=== PATIENT | female | born 1975 ===

== ENCOUNTER 2021-01-22 10:02 | Outpatient (REF) | payer MEDICAID, SELFPAY ==
[2021-01-22 11:30] LABS: MANUAL DIFF FLAG NO
[2021-01-22 11:37] LABS: Basophils Percent Auto 0.4 % (0-2); Eosinophils Absolute Auto 0.1 X10*3/uL (0.0-0.4); Eosinophils Percent Auto 0.7 % (0-4); Hematocrit 39.8 % (37-47); Hemoglobin 13.2 g/dl (12.0-16.0); Imm Gran Abs Auto 0.03 X10*3/uL (0.00-0.03); Imm Gran Pct Auto 0.4 % (0.0-0.4); Lymphocytes Absolute Auto 2.4 X10*3/uL (1.2-4.9); Mean Corpuscular HGB Conc 33.2 g/dl (31.0-35.0); Mean Corpuscular Hemoglobin 30.4 pg (27.0-33.0); Mean Corpuscular Volume 91.7 fL (80-98); Mean Platelet Volume 10.6 fL (9.4-12.3); Monocytes Absolute Auto 0.5 X10*3/uL (0.1-1.2); Monocytes Percent Auto 5.8 % (2-11); Neutrophils Absolute Auto 5.1 X10*3/uL (2.0-8.3); Neutrophils Percent Auto 62.7 % (45-73); Platelet Count 219 X10*3/uL (160-400); Red Blood Count 4.34 X10*6/uL (4.20-5.50); Red Cell Distribution Width 12.9 % (11.0-16.0); White Blood Count 8.1 X10*3/uL (4.8-10.8)
[2021-01-22 11:54] LABS: Estimated Average Glucose 88 mg/dL; Hemoglobin A1c % 4.7 %
[2021-01-22 12:15] LABS: Alanine Aminotransferase 9 U/L (0-31); Albumin Level 4.3 g/dL (3.5-5.0); Alkaline Phosphatase 61 U/L (39-117); Anion Gap 13 (12-20); Aspartate Amino Transferase 12 U/L (5-31); Bilirubin Total 0.7 mg/dL (0.0-1.0); Blood Urea Nitrogen 15 mg/dL (9-16); C Reactive Protein 0.11 mg/dL (< or = 0.50); Calcium 9.9 mg/dL (8.4-10.2); Carbon Dioxide 24 mmol/L (22-29); Chloride 104 mmol/L (96-108); Cholesterol 187 mg/dL; Estimated Glomerular Filt Rate > 60; Glucose Random 84 mg/dL (60-115); HDL Cholesterol 51 mg/dL; Iron 159 mcg/dL (30-160); LDL Cholesterol Calculated 117 mg/dl; Percent Iron Saturation 48 % (15-50); Potassium 4.4 mmol/L (3.3-5.1); Sodium 137 mmol/L (135-145); Total Iron Binding Capacity 334 mcg/dL (228-428); Total Protein 7.7 g/dL (6.5-8.0); Triglycerides 95 mg/dL; Unsaturated Iron Binding 175 ug/dL
[2021-01-22 12:40] LABS: Ferritin 96 ng/mL (10-250); TSH reflex Free T4 1.79 uIU/mL (0.32-4.0); Vitamin D 25-OH Total 18.6 ng/mL (>30)
[2021-01-22 15:00] LABS: Folate 12.2 ng/mL (> or = 4.0); Vitamin B12 947 pg/mL (200-900)
[2021-01-23 10:03] LABS: Insulin Level Total 5.4 uIU/mL
[2021-01-23 19:45] LABS: Calcium (PTHI) 9.8 mg/dL (8.6-10.2); PTHI 48 pg/mL (14-64)
[2021-01-26 01:06] LABS: Zinc 67 mcg/dL (60-130)
[2021-01-26 13:27] LABS: Vitamin B1 18 nmol/L (8-30)
[2021-01-28 19:26] LABS: Vitamin A 42 mcg/dL (38-98)
== END 2021-01-22 10:03 | disposition home or self-care (01) ==
LOC: HO.LAB 10:02
PROVIDERS: PCP Internal Medicine Geriatric Medicine; Visit Provider Physician Assistant
DX: R42 Dizziness and giddiness (principal); E66.9 Obesity, unspecified; Z98.84 Bariatric surgery status; Z68.31 Body mass index [BMI] 31.0-31.9, adult
CPT/HCPCS: 36415; 80053; 80061; 82306; 82607; 82728; 82746; 83036; 83525; 83540; 83970; 84425; 84443; 84590; 84630; 85025; 86140; 99212

== ENCOUNTER → 2021-03-07 10:04 | Outpatient (BNVA) | payer MEDICAID, SELFPAY | PROVIDERS: PCP Internal Medicine Geriatric Medicine; Referring Provider Internal Medicine Geriatric Medicine; Visit Provider Dietitian, Registered | DX: E66.9 Obesity, unspecified (principal); Z98.84 Bariatric surgery status; Z68.31 Body mass index [BMI] 31.0-31.9, adult | CPT/HCPCS: 97803 ==

== ENCOUNTER → 2021-06-04 08:00 | Outpatient (BNVA) | payer MEDICAID, SELFPAY | PROVIDERS: PCP Internal Medicine Geriatric Medicine; Visit Provider Physician Assistant | DX: Z98.84 Bariatric surgery status (principal); E66.9 Obesity, unspecified; R42 Dizziness and giddiness ==

== ENCOUNTER → 2021-07-25 15:02 | Outpatient (BNVA) | payer MEDICAID, SELFPAY | PROVIDERS: Referring Provider Internal Medicine Geriatric Medicine; Visit Provider Physician Assistant Surgical | DX: K29.70 Gastritis, unspecified, without bleeding (principal) | CPT/HCPCS: 99212 ==

== ENCOUNTER → 2021-08-08 10:35 | Outpatient (BNVA) | payer MEDICAID, SELFPAY | PROVIDERS: PCP Internal Medicine Geriatric Medicine; Referring Provider Internal Medicine Geriatric Medicine; Visit Provider Physician Assistant | DX: Z11.0 Encounter for screening for intestinal infectious diseases (principal) | CPT/HCPCS: 99211 ==

== ENCOUNTER 2021-08-11 16:09 | Outpatient (REF) | payer MEDICAID, SELFPAY ==
[2021-08-12 16:09] LABS: H Pylori Breath Test Negative (Negative)
== END 2021-08-11 16:10 | disposition home or self-care (01) ==
LOC: HO.LNP 16:09
PROVIDERS: Visit Provider Physician Assistant
DX: E66.9 Obesity, unspecified (principal)
CPT/HCPCS: 83013

== ENCOUNTER → 2021-10-02 10:16 | Outpatient (BNVA) | payer MEDICAID, SELFPAY | PROVIDERS: PCP Internal Medicine Geriatric Medicine; Referring Provider Internal Medicine Geriatric Medicine; Visit Provider Physician Assistant | DX: R10.13 Epigastric pain (principal); Z98.84 Bariatric surgery status | CPT/HCPCS: 99212 ==

== ENCOUNTER → 2022-02-04 10:04 | Outpatient (BNVA) | payer MEDICAID, SELFPAY | PROVIDERS: PCP Internal Medicine Geriatric Medicine; Visit Provider Physician Assistant Surgical | DX: R10.13 Epigastric pain (principal); E66.9 Obesity, unspecified; Z68.33 Body mass index [BMI] 33.0-33.9, adult; Z71.3 Dietary counseling and surveillance; Z98.84 Bariatric surgery status | CPT/HCPCS: 99212 ==

== ENCOUNTER 2022-03-26 08:57 | Outpatient (REF) | payer MEDICAID, SELFPAY ==
[2022-03-26 09:17] LABS: MANUAL DIFF FLAG NO
[2022-03-26 09:49] LABS: Basophils Absolute Auto 0.1 X10*3/uL (0.0-0.2); Basophils Percent Auto 0.8 % (0-2); Eosinophils Absolute Auto 0.1 X10*3/uL (0.0-0.4); Hematocrit 40.4 % (37.0-47.0); Hemoglobin 13.6 g/dl (12.0-16.0); Imm Gran Abs Auto 0.03 X10*3/uL (0.00-0.03); Imm Gran Pct Auto 0.4 % (0.0-0.4); Lymphocytes Absolute Auto 2.4 X10*3/uL (1.2-4.9); Lymphocytes Percent Auto 30.5 % (20-40); Mean Corpuscular HGB Conc 33.7 g/dl (31.0-35.0); Mean Corpuscular Hemoglobin 30.1 pg (27.0-33.0); Mean Corpuscular Volume 89.4 fL (80.0-98.0); Mean Platelet Volume 10.6 fL (9.4-12.3); Monocytes Absolute Auto 0.4 X10*3/uL (0.1-1.2); Monocytes Percent Auto 5.4 % (2-11); Neutrophils Absolute Auto 4.9 x10*3/uL (2.0-8.3); Neutrophils Percent Auto 61.9 % (45-73); Platelet Count 250 X10*3/uL (160-400); Red Blood Count 4.52 X10*6/uL (4.20-5.50); Red Cell Distribution Width 13.4 % (11.0-16.0); White Blood Count 7.9 X10*3/uL (4.8-10.8)
[2022-03-26 10:06] LABS: Estimated Average Glucose 91 mg/dL; Hemoglobin A1c % 4.8 %
[2022-03-26 10:14] LABS: Alanine Aminotransferase 15 U/L (0-31); Albumin Level 4.4 g/dL (3.5-5.0); Alkaline Phosphatase 64 U/L (39-117); Anion Gap 16 (12-20); Aspartate Amino Transferase 12 U/L (5-31); Bilirubin Total 0.7 mg/dL (0.0-1.0); Blood Urea Nitrogen 14 mg/dL (9-16); C Reactive Protein 0.15 mg/dL (< or = 0.50); Calcium 9.5 mg/dL (8.4-10.2); Carbon Dioxide 23 mmol/L (22-29); Chloride 105 mmol/L (96-108); Cholesterol 225 mg/dL; Estimated Glomerular Filt Rate > 60; Glucose Random 91 mg/dL (60-115); HDL Cholesterol 53 mg/dL; Iron 119 mcg/dL (30-160); LDL Cholesterol Calculated 155 mg/dl; Percent Iron Saturation 33 % (15-50); Potassium 4.7 mmol/L (3.3-5.1); Sodium 139 mmol/L (135-145); Total Iron Binding Capacity 362 mcg/dL (228-428); Total Protein 7.8 g/dL (6.5-8.0); Triglycerides 86 mg/dL; Unsaturated Iron Binding 243 ug/dL
[2022-03-26 10:35] LABS: Vitamin B12 853 pg/mL (200-900)
[2022-03-26 10:44] LABS: Ferritin 53 ng/mL (10-250); TSH reflex Free T4 1.24 uIU/mL (0.32-4.0)
[2022-03-26 11:17] LABS: Insulin 14 uU/mL (2-29)
[2022-03-27 13:31] LABS: Calcium (PTHI) 9.6 mg/dL (8.6-10.2); PTHI 75 pg/mL (16-77)
[2022-03-30 02:47] LABS: Zinc 79 mcg/dL (60-130)
[2022-03-30 06:36] LABS: Vitamin B1 15 nmol/L (8-30)
[2022-03-31 17:22] LABS: Vitamin A 47 mcg/dL (38-98)
== END 2022-03-26 08:58 | disposition home or self-care (01) ==
LOC: HO.LAB 08:57
PROVIDERS: PCP Internal Medicine Geriatric Medicine; Visit Provider Physician Assistant Surgical
DX: Z98.84 Bariatric surgery status (principal)
CPT/HCPCS: 36415; 80053; 80061; 82306; 82607; 82728; 82746; 83036; 83525; 83540; 83970; 84425; 84443; 84590; 84630; 85025; 86140

== ENCOUNTER 2022-07-16 09:39 | Outpatient (REF) | payer MEDICAID, SELFPAY ==
[2022-07-17 12:29] LABS: BV Int Neg Control Negative (Negative); BV Int Pos Control Positive (Positive)
== END 2022-07-16 09:40 | disposition home or self-care (01) ==
LOC: HO.LAB 09:39
PROVIDERS: PCP Internal Medicine Geriatric Medicine; Visit Provider Urology
DX: N39.3 Stress incontinence (female) (male) (principal)
CPT/HCPCS: 51798; 87480; 87510; 87660; 99202

== ENCOUNTER 2022-09-28 10:08 | Outpatient (REF) | payer MEDICAID, SELFPAY ==
--- NOTE | ~2022-09-28 | US_ITS ---
EXAMINATION: US RETROPERITONEAL LIMITED (RENAL ONLY) CLINICAL INFORMATION: Frequency of micturition. COMPARISON: X-ray abdomen 03/04/2018. Ultrasound abdomen with elastography 12/09/2017. TECHNIQUE: Real-time imaging of the kidneys. FINDINGS: RIGHT KIDNEY: 10.6 x 4.7 x 5.1 cm (SAG x AP x TRV). The kidney is normal in size, contour, and echogenicity. Renal cortical thickness is normal. No calculi or focal parenchymal lesions. No hydronephrosis. LEFT KIDNEY: 10.5 x 5.7 x 5.1 cm (SAG x AP x TRV). The kidney is normal in size, contour, and echogenicity. Renal cortical thickness is normal. No calculi or focal parenchymal lesions. No hydronephrosis. US/US renal BI IMPRESSION: Unremarkable renal ultrasound.
== END 2022-09-28 10:09 | disposition home or self-care (01) ==
LOC: HO.US 10:08
PROVIDERS: PCP Internal Medicine Geriatric Medicine; Visit Provider Urology
DX: R35.0 Frequency of micturition (principal)
CPT/HCPCS: 76775

== ENCOUNTER 2023-01-14 09:01 | Outpatient (REF) | payer MEDICAID, SELFPAY ==
[2023-01-14 11:45] LABS: MANUAL DIFF FLAG NO
[2023-01-14 11:52] LABS: Basophils Absolute Auto 0.1 X10*3/uL (0.0-0.2); Basophils Percent Auto 0.5 % (0-2); Eosinophils Absolute Auto 0.1 X10*3/uL (0.0-0.4); Hematocrit 42.8 % (37.0-47.0); Hemoglobin 14.6 g/dl (12.0-16.0); Imm Gran Abs Auto 0.03 X10*3/uL (0.00-0.03); Imm Gran Pct Auto 0.3 % (0.0-0.4); Lymphocytes Absolute Auto 2.8 X10*3/uL (1.2-4.9); Lymphocytes Percent Auto 29.8 % (20-40); Mean Corpuscular HGB Conc 34.1 g/dl (31.0-35.0); Mean Corpuscular Hemoglobin 29.9 pg (27.0-33.0); Mean Corpuscular Volume 87.5 fL (80.0-98.0); Mean Platelet Volume 10.9 fL (9.4-12.3); Monocytes Absolute Auto 0.6 X10*3/uL (0.1-1.2); Monocytes Percent Auto 6.2 % (2-11); Neutrophils Absolute Auto 5.8 x10*3/uL (2.0-8.3); Neutrophils Percent Auto 62.2 % (45-73); Platelet Count 331 X10*3/uL (160-400); Red Blood Count 4.89 X10*6/uL (4.20-5.50); Red Cell Distribution Width 13.2 % (11.0-16.0); White Blood Count 9.3 X10*3/uL (4.8-10.8)
[2023-01-14 11:55] LABS: INTERNATIONAL NORM RATIO 0.9 (0.9-1.1); Prothrombin Time 10.5 SEC (10.0-13.1)
[2023-01-14 12:21] LABS: Anion Gap 14 (12-20); Blood Urea Nitrogen 18 mg/dL (9-16); Calcium 11.1 mg/dL (8.4-10.2); Carbon Dioxide 30 mmol/L (22-29); Chloride 98 mmol/L (96-108); Estimated Glomerular Filt Rate > 60; Glucose Random 69 mg/dL (60-115); Potassium 3.1 mmol/L (3.3-5.1); Sodium 139 mmol/L (135-145)
== END 2023-01-14 09:02 | disposition home or self-care (01) ==
LOC: HO.HHCL 09:01
PROVIDERS: Visit Provider Internal Medicine Geriatric Medicine
DX: T14.8XXA Other injury of unspecified body region, initial encounter (principal)
CPT/HCPCS: 36415; 80048; 85025; 85610

== ENCOUNTER 2023-02-08 09:10 | Outpatient (REF) | payer MEDICAID, SELFPAY ==
[2023-02-08 12:01] LABS: Anion Gap 14 (12-20); Blood Urea Nitrogen 13 mg/dL (9-16); Calcium 9.7 mg/dL (8.4-10.2); Carbon Dioxide 23 mmol/L (22-29); Chloride 105 mmol/L (96-108); Estimated Glomerular Filt Rate > 60; Glucose Random 87 mg/dL (60-115); Potassium 3.4 mmol/L (3.3-5.1); Sodium 139 mmol/L (135-145)
[2023-02-10 13:48] LABS: Calcium (PTHI) 9.5 mg/dL (8.6-10.2); PTHI 120 pg/mL (16-77)
[2023-02-12 13:25] LABS: Alphahydroxymidazolam,GCMS Ur NEGATIVE; Alphahydroxytriazolam, GCMS Ur NEGATIVE; Alprazolam, GCMS Urine NEGATIVE; Lorazepam GCMS Urine NEGATIVE; Nordiazepam, GCMS Urine NEGATIVE; Oxazepam, GCMS Urine NEGATIVE; Temazepam, GCMS Urine NEGATIVE
[2023-02-12 13:26] LABS: Flurazepam Metabolite,GCMS Ur NEGATIVE
== END 2023-02-08 09:11 | disposition home or self-care (01) ==
LOC: HO.HHCL 09:10
PROVIDERS: Visit Provider Internal Medicine Geriatric Medicine
DX: F41.8 Other specified anxiety disorders (principal); E83.52 Hypercalcemia; E87.6 Hypokalemia
CPT/HCPCS: 36415; 80048; 80346; 83970

== ENCOUNTER 2023-05-04 16:41 | Outpatient (REF) | payer MEDICAID, SELFPAY ==
[2023-05-10 12:22] LABS: Alphahydroxymidazolam,GCMS Ur NEGATIVE; Alphahydroxytriazolam, GCMS Ur NEGATIVE; Alprazolam, GCMS Urine NEGATIVE; Flurazepam Metabolite,GCMS Ur NEGATIVE; Lorazepam GCMS Urine NEGATIVE; Nordiazepam, GCMS Urine NEGATIVE; Oxazepam, GCMS Urine NEGATIVE; Temazepam, GCMS Urine NEGATIVE
== END 2023-05-04 16:42 | disposition home or self-care (01) ==
LOC: HO.HHCLNP 16:41
PROVIDERS: Visit Provider Internal Medicine Geriatric Medicine
DX: G89.29 Other chronic pain (principal); M54.50 Low back pain, unspecified
CPT/HCPCS: 80346

== ENCOUNTER 2023-07-08 13:33 | Outpatient (REF) | payer MEDICAID, SELFPAY ==
[2023-07-13 10:22] LABS: Nordiazepam, GCMS Urine NEGATIVE
[2023-07-13 10:23] LABS: Alphahydroxymidazolam,GCMS Ur NEGATIVE; Alphahydroxytriazolam, GCMS Ur NEGATIVE; Alprazolam, GCMS Urine NEGATIVE; Flurazepam Metabolite,GCMS Ur NEGATIVE; Lorazepam GCMS Urine NEGATIVE; Oxazepam, GCMS Urine NEGATIVE; Temazepam, GCMS Urine NEGATIVE
== END 2023-07-08 13:34 | disposition home or self-care (01) ==
LOC: HO.HHCLNP 13:33
PROVIDERS: Visit Provider Internal Medicine Geriatric Medicine
DX: F41.8 Other specified anxiety disorders (principal)
CPT/HCPCS: 80346

== ENCOUNTER 2023-09-01 17:59 | Outpatient (REF) | payer MEDICAID, SELFPAY ==
[2023-09-06 08:42] LABS: Alphahydroxymidazolam,GCMS Ur NEGATIVE; Alphahydroxytriazolam, GCMS Ur NEGATIVE; Alprazolam, GCMS Urine NEGATIVE; Flurazepam Metabolite,GCMS Ur NEGATIVE; Lorazepam GCMS Urine NEGATIVE; Nordiazepam, GCMS Urine NEGATIVE; Oxazepam, GCMS Urine NEGATIVE; Temazepam, GCMS Urine NEGATIVE
== END 2023-09-01 18:00 | disposition home or self-care (01) ==
LOC: HO.HHCLNP 17:59
PROVIDERS: Visit Provider Internal Medicine Geriatric Medicine
DX: M54.50 Low back pain, unspecified (principal); G89.29 Other chronic pain
CPT/HCPCS: 80346

== ENCOUNTER 2023-10-14 10:11 | Outpatient (AMB) | payer MEDICAID, SELFPAY ==
--- NOTE | 2023-10-14 10:27 | MHC.OFFVISWM ---
Intake VS Expanded 10/14/23 10:33 BP 144/82 H Blood Pressure Location Rt brachial Blood Pressure Position Sitting Pulse 96 Pulse Source Pulse Oximeter Temp 96.5 F L Temperature Source Tympanic Pulse Oximetry 100 Oxygen Delivery Method Room Air Height 5 ft 1 in Weight 179 lb 6.4 oz BMI 33.9 Body Fat % 42.8 Body Fat Mass 76.8 Fat Free Mass 102.6 Visceral Fat Rating 10.0 Body Water % 40.8 Body Water Mass 73.2 Muscle Mass/Score 97.2 Basal Metabolic Rate/Score 1,438 Intake Visit Reasons: (OV) PO LSG 03/03/2018 Allergies No Known Allergies [No Known Allergies*] Allergy (Verified 10/14/23 10:36) Medication List - Last Reconciled 10/14/23 by ROB Escalante albuterol sulfate 90 mcg/actuation (ProAir HFA) 2 puffs PO Q4-6H PRN amlodipine 2.5 mg PO DAILY cixsbzinmn-abxtdfmhyffdu-ictc 50-325-40 mg 1 - 2 tabs PO Q4H PRN cholecalciferol (vitamin D3) 125 mcg PO DAILY clonazepam 0.5 mg PO Q OTHER DAY PRN diphenhydramine HCl (Banophen) 25 mg PO BEDTIME PRN duloxetine 30 mg PO BID fluticasone propionate 110 mcg/actuation (Flovent HFA) 1 puff inhalation BID fluticasone propionate 44 mcg/actuation (Flovent HFA) 2 puffs inhalation BID meclizine 25 mg PO TID PRN ondansetron HCl 8 mg PO BID [opurity bariatric mVI 1 cap PO DAILY] pantoprazole 40 mg PO DAILY sertraline 50 mg PO DAILY tramadol 50 mg PO Q12H PRN trazodone 50 mg PO BEDTIME HPI HPI Comments History of Present Illness Details This?is a?47?yo female who is s/p LSG 03/03/2018. Weight +1lb since last OV in 02/2022.? No complaints of nausea, emesis, or constipation. Pt reports a constant burning pain in abdomen. Happens all the time , nothing makes it worse or better. No nausea, no vomiting. Feels constipated, nonbloody stools. Reports she is well hydrated, drinks water and Crystal Light, no soda or juices. No smoking, no EtOH. Tries to avoid acidic foods as those make it work. Drinks coffee- 2 cups, 8oz or so each, adds a little cream. Will have this on an empty stomach, doesn't have anything to eat or drink before this. Also has noticed easy bruising and some leg swelling at ankles, per pt was previously on a diuretic but was stopped recently? Lately has been drinking coffee at 7am, eats something at 1pm and then another meal around 6pm, eats soups often. Present meal plan includes: 7am- 30 gram shake 8am - coffee 12pm - 30 gram shake 4pm- meal Pt continues to have coffee first before any other food/drink. Says her portions or small and she is not often hungry. [facility] Surgical History (Updated 10/14/23 @ 10:37 by Janeen Clements [facility]) Hx of laparoscopic partial gastrectomy Family History Mother Hypertension Family history of thyroid problem Father No problems noted. Sister No problems noted. Sister No problems noted. Brother No problems noted. Son No problems noted. Son No problems noted. Social History (System 07/09/23 @ 10:47 by Priscila Dalton) Alcohol intake: never Patient Tobacco Use Status: Never used Tobacco Physical Exam Vital Signs: Last Vital Signs Temp 96.5 F L 10/14/23 10:33 Pulse 96 10/14/23 10:33 BP 144/82 H 10/14/23 10:33 Pulse Ox 100 10/14/23 10:33 Oxygen Delivery Method Room Air 10/14/23 10:33 BMI result Body Mass Index 33.9 Assessment & Plan Assessment & Plan (1) S/P laparoscopic sleeve gastrectomy: Comment: February 2018 Code(s): Z98.84 - Bariatric surgery status (2) Epigastric pain: Code(s): R10.13 - Epigastric pain (3) Obesity: Code(s): E66.9 - Obesity, unspecified Plan Again discussed the importance of not drinking coffee on empty stomach and getting adequate protein intake. I think her recent complaints of easy bruising and leg swelling may be related in part to poor nutrition. Pt needs to increase protein intake. Recommended adding 2 protein drinks per day (protein [place] or shakes), needs to drink protein drink first before coffee. Will refill PPI and add carafate, reviewed appropriate dosing. If no improvement despite new med and adherence to meal plan will order UGI at next visit. Labs ordered. RTC 8 weeks. Patient is obese and is not considered stable at this time. I spent a total of 30 minutes reviewing/updating records, examining the patient and counseling the patient on weight management as detailed above. Orders: Orders Hemoglobin A1c Today R42 - Dizziness and giddiness, Z98.84 - Bariatric surgery status Complete Blood Count Auto Diff Today R42 - Dizziness and giddiness, Z98.84 - Bariatric surgery status IRON PROFILE Today R42 - Dizziness and giddiness, Z98.84 - Bariatric surgery status Comprehensive Met. Panel Today R42 - Dizziness and giddiness, Z98.84 - Bariatric surgery status Vitamin B12 and Folate Today R42 - Dizziness and giddiness, Z98.84 - Bariatric surgery status Vitamin B1 Today R42 - Dizziness and giddiness, Z98.84 - Bariatric surgery status TSH reflex Free T4 Today R42 - Dizziness and giddiness, Z98.84 - Bariatric surgery status Insulin Today R42 - Dizziness and giddiness, Z98.84 - Bariatric surgery status Lipid Panel Today R42 - Dizziness and giddiness, Z98.84 - Bariatric surgery status Zinc Today R42 - Dizziness and giddiness, Z98.84 - Bariatric surgery status C Reactive Protein Today R42 - Dizziness and giddiness, Z98.84 - Bariatric surgery status Vitamin A Today R42 - Dizziness and giddiness, Z98.84 - Bariatric surgery status Ferritin Today R42 - Dizziness and giddiness, Z98.84 - Bariatric surgery status Vitamin D 25-OH Total Today R42 - Dizziness and giddiness, Z98.84 - Bariatric surgery status Medications: New sucralfate (Carafate) 10 mL PO BID 420 mL 3RF inulin 2 grams PO DAILY 90 tabs 3RF magnesium hydroxide (Fernandez Milk of Magnesia) 5 mL PO DAILY PRN 355 mL 2RF constipation Refilled pantoprazole 40 mg PO DAILY 90 tabs 3RF Coding Level of Care Code Est Pt Level 4 (82464) Diagnoses S/P laparoscopic sleeve gastrectomy Z98.84 Epigastric pain R10.13 Obesity E66.9
[2023-10-14 10:33] VITALS: BP 144/82; PULSE 96; TEMP 35.8; O2SAT 100; BMI 33.9
== END 2023-10-14 11:11 | disposition home or self-care (01) ==
PROVIDERS: PCP Internal Medicine Geriatric Medicine; Visit Provider Physician Assistant Surgical
DX: E66.9 Obesity, unspecified (principal); Z68.33 Body mass index [BMI] 33.0-33.9, adult; R10.13 Epigastric pain; Z98.84 Bariatric surgery status
CPT/HCPCS: 99214

== ENCOUNTER → 2023-10-14 10:11 | Outpatient (BNVA) | payer MEDICAID, SELFPAY | PROVIDERS: PCP Internal Medicine Geriatric Medicine; Visit Provider Physician Assistant Surgical | DX: E66.9 Obesity, unspecified (principal); R10.13 Epigastric pain; Z98.84 Bariatric surgery status; Z68.33 Body mass index [BMI] 33.0-33.9, adult | CPT/HCPCS: 99212 ==

== ENCOUNTER 2023-10-18 07:12 | Outpatient (REF) | payer MEDICAID, SELFPAY ==
[2023-10-18 07:30] LABS: MANUAL DIFF FLAG NO
[2023-10-18 08:32] LABS: Basophils Percent Auto 0.6 % (0-2); Eosinophils Absolute Auto 0.1 X10*3/uL (0.0-0.4); Eosinophils Percent Auto 0.8 % (0-4); Hematocrit 40.2 % (37.0-47.0); Hemoglobin 13.5 g/dl (12.0-16.0); Imm Gran Abs Auto 0.02 X10*3/uL (0.00-0.03); Imm Gran Pct Auto 0.3 % (0.0-0.4); Lymphocytes Absolute Auto 2.3 X10*3/uL (1.2-4.9); Lymphocytes Percent Auto 31.8 % (20-40); Mean Corpuscular HGB Conc 33.6 g/dl (31.0-35.0); Mean Corpuscular Hemoglobin 29.9 pg (27.0-33.0); Mean Corpuscular Volume 88.9 fL (80.0-98.0); Mean Platelet Volume 10.5 fL (9.4-12.3); Monocytes Absolute Auto 0.5 X10*3/uL (0.1-1.2); Monocytes Percent Auto 6.5 % (2-11); Neutrophils Absolute Auto 4.3 x10*3/uL (2.0-8.3); Platelet Count 243 X10*3/uL (160-400); Red Blood Count 4.52 X10*6/uL (4.20-5.50); Red Cell Distribution Width 13.5 % (11.0-16.0); White Blood Count 7.1 X10*3/uL (4.8-10.8)
[2023-10-18 08:44] LABS: Estimated Average Glucose 97 mg/dL
[2023-10-18 09:09] LABS: Alanine Aminotransferase 25 U/L (0-31); Albumin Level 4.4 g/dL (3.5-5.0); Alkaline Phosphatase 73 U/L (39-117); Anion Gap 11 (12-20); Aspartate Amino Transferase 17 U/L (5-31); Bilirubin Total 0.5 mg/dL (0.0-1.0); Blood Urea Nitrogen 16 mg/dL (9-16); C Reactive Protein 0.17 mg/dL (< or = 0.50); Calcium 10.1 mg/dL (8.4-10.2); Carbon Dioxide 22 mmol/L (22-29); Chloride 109 mmol/L (96-108); Cholesterol 227 mg/dL (<200); Estimated Glomerular Filt Rate > 60; Glucose Random 89 mg/dL (60-115); HDL Cholesterol 63 mg/dL (>40); Iron 88 mcg/dL (30-160); LDL Cholesterol Calculated 149 mg/dL (<100); Percent Iron Saturation 28 % (15-50); Potassium 3.9 mmol/L (3.3-5.1); Sodium 138 mmol/L (135-145); Total Iron Binding Capacity 311 mcg/dL (228-428); Triglycerides 76 mg/dL (<150); Unsaturated Iron Binding 223 ug/dL
[2023-10-18 09:30] LABS: Folate 6.6 ng/mL (> or = 4.0); Vitamin B12 769 pg/mL (200-900)
[2023-10-18 09:32] LABS: Ferritin 69 ng/mL (10-250); Insulin 9 uU/mL (2-29); Vitamin D 25-OH Total 29.6 ng/mL (>30)
[2023-10-20 22:12] LABS: Zinc 76 mcg/dL (60-130)
[2023-10-21 17:58] LABS: Vitamin A 43 mcg/dL (38-98)
[2023-10-22 17:33] LABS: Vitamin B1 15 nmol/L (8-30)
== END 2023-10-18 07:13 | disposition home or self-care (01) ==
LOC: HO.LAB 07:12
PROVIDERS: PCP Internal Medicine Geriatric Medicine; Visit Provider Physician Assistant Surgical
DX: R42 Dizziness and giddiness (principal); Z98.84 Bariatric surgery status
CPT/HCPCS: 36415; 80053; 80061; 82306; 82607; 82728; 82746; 83036; 83525; 83540; 84425; 84443; 84590; 84630; 85025; 86140

== ENCOUNTER 2023-11-01 17:30 | Outpatient (REF) | payer MEDICAID, SELFPAY ==
[2023-11-04 13:14] LABS: Alphahydroxymidazolam,GCMS Ur NEGATIVE; Alphahydroxytriazolam, GCMS Ur NEGATIVE; Alprazolam, GCMS Urine NEGATIVE; Flurazepam Metabolite,GCMS Ur NEGATIVE; Lorazepam GCMS Urine NEGATIVE; Nordiazepam, GCMS Urine NEGATIVE; Oxazepam, GCMS Urine NEGATIVE; Temazepam, GCMS Urine NEGATIVE
== END 2023-11-01 17:31 | disposition home or self-care (01) ==
LOC: HO.HHCLNP 17:30
PROVIDERS: Visit Provider Internal Medicine Geriatric Medicine
DX: M54.50 Low back pain, unspecified (principal); G89.29 Other chronic pain
CPT/HCPCS: 80346

== ENCOUNTER 2023-12-15 13:54 | Outpatient (AMB) | payer MEDICAID, SELFPAY ==
--- NOTE | 2023-12-15 13:57 | MHC.OFFVISWM ---
VS Expanded 12/15/23 14:12 BP 142/68 H Blood Pressure Location Rt brachial Blood Pressure Position Sitting Pulse 91 Pulse Source Pulse Oximeter Temp 96.8 F Temperature Source Tympanic Pulse Oximetry 99 Oxygen Delivery Method Room Air Height 5 ft 1 in Weight 177 lb 9.6 oz BMI 33.6 Body Fat % 42.7 Body Fat Mass 75.8 Fat Free Mass 101.6 Visceral Fat Rating 10.0 Body Water % 40.9 Body Water Mass 72.6 Muscle Mass/Score 96.6 Basal Metabolic Rate/Score 1,426 Intake Visit Reasons: (OV) PO LSG 03/03/2018 Allergies No Known Allergies [No Known Allergies*] Allergy (Verified 12/15/23 14:14) HPI Comments Details: This?is a?47?yo female who is s/p LSG 03/03/2018. Weight -2lb since last OV in 10/2023.? No complaints of nausea, emesis, or constipation. Pt reports a constant burning pain in abdomen. Happens all the time , nothing makes it worse or better. No nausea, no vomiting. Feels constipated, nonbloody stools. Reports she is well hydrated, drinks water and Crystal Light, no soda or juices. No smoking, no EtOH. Tries to avoid acidic foods as those make it work. On PPI and carafate. Drinks coffee- 2 cups, 8oz or so each, adds a little cream. Has been drinking coffee after having some of protein shake ( was not doing this previously) but reports symptoms are no better. Continues to have some leg swelling, saw PCP, had been taking a diuretic but this was stopped after bruising was noted per pt. Pt does not want to try compression stockings. Present meal plan includes: 7am- 30 gram shake 8am - coffee 12pm - 30 gram shake 4pm- meal reports she takes a MVI Pt continues to have coffee first before any other food/drink. Says her portions or small and she is not often hungry. [facility], [facility] Surgical History (Updated 10/14/23 @ 10:37 by Janeen Clements [facility]) Hx of laparoscopic partial gastrectomy Family History Mother Hypertension Family history of thyroid problem Father No problems noted. Sister No problems noted. Sister No problems noted. Brother No problems noted. Son No problems noted. Son No problems noted. Social History (System 07/09/23 @ 10:47 by Priscila Dalton) Alcohol intake: never Patient Tobacco Use Status: Never used Tobacco Physical Exam Vital Signs: Last Vital Signs Temp 96.8 F 12/15/23 14:12 Pulse 91 12/15/23 14:12 BP 142/68 H 12/15/23 14:12 Pulse Ox 99 12/15/23 14:12 Oxygen Delivery Method Room Air 12/15/23 14:12 BMI result Body Mass Index 33.6 Assessment & Plan Assessment & Plan (1) GERD (gastroesophageal reflux disease): Code(s): K21.9 - Gastro-esophageal reflux disease without esophagitis Category: Medical (2) S/P laparoscopic sleeve gastrectomy: Comment: February 2018 Code(s): Z98.84 - Bariatric surgery status Category: Medical (3) Obesity: Code(s): E66.9 - Obesity, unspecified Category: Medical Plan Pt reports making suggested changes to meal plan, avoiding coffee first, has lost 2lbs since last OV but still suffering from reflux despite PPI/carafate therapy. Will order UGI and depending on results consider endoscopy with Dr. Caprice Blancas continue same meal plan, adequate protein, avoid reflux triggers, focus on weight loss. Patient is obese and is not considered stable at this time. I spent a total of 30 minutes reviewing/updating records, examining the patient and counseling the patient on weight management as detailed above. Orders: Orders FL upper GI w air Today K21.9 - Gastro-esophageal reflux disease without esophagitis, Z98.84 - Bariatric surgery status Medications: Refilled sucralfate (Carafate) 10 mL PO BID 420 mL 3RF
[2023-12-15 14:12] VITALS: BP 142/68; PULSE 91; TEMP 36; O2SAT 99; BMI 33.6
== END 2023-12-15 14:59 | disposition home or self-care (01) ==
PROVIDERS: PCP Internal Medicine Geriatric Medicine; Visit Provider Physician Assistant Surgical
DX: K21.9 Gastro-esophageal reflux disease without esophagitis (principal); Z98.84 Bariatric surgery status; E66.9 Obesity, unspecified
CPT/HCPCS: 99214

== ENCOUNTER → 2023-12-15 13:54 | Outpatient (BNVA) | payer MEDICAID, SELFPAY | PROVIDERS: PCP Internal Medicine Geriatric Medicine; Visit Provider Physician Assistant Surgical | DX: E66.9 Obesity, unspecified (principal); K21.9 Gastro-esophageal reflux disease without esophagitis; Z98.84 Bariatric surgery status; Z68.33 Body mass index [BMI] 33.0-33.9, adult | CPT/HCPCS: 99212 ==

== ENCOUNTER 2023-12-29 16:44 | Outpatient (REF) | payer MEDICAID, SELFPAY ==
[2024-01-03 12:30] LABS: Alphahydroxymidazolam,GCMS Ur NEGATIVE; Alphahydroxytriazolam, GCMS Ur NEGATIVE; Alprazolam, GCMS Urine NEGATIVE; Flurazepam Metabolite,GCMS Ur NEGATIVE; Lorazepam GCMS Urine NEGATIVE; Nordiazepam, GCMS Urine NEGATIVE; Oxazepam, GCMS Urine NEGATIVE; Temazepam, GCMS Urine NEGATIVE
[2024-01-03 12:43] LABS: Aminoclonazepam, GCMS Urine 73 (H)
== END 2023-12-29 16:45 | disposition home or self-care (01) ==
LOC: HO.HHCLNP 16:44
PROVIDERS: Visit Provider Internal Medicine Geriatric Medicine
DX: F41.8 Other specified anxiety disorders (principal)
CPT/HCPCS: 80346

== ENCOUNTER 2024-02-18 09:40 | Outpatient (REF) | payer MEDICAID, SELFPAY ==
--- NOTE | ~2024-02-18 | FL_ITS ---
EXAMINATION: XR FLUOROSCOPY UPPER GI WITH AIR CLINICAL INFORMATION: Epigastric pain. History of sleeve gastrectomy COMPARISON: Barium swallow 2018 TECHNIQUE: Fluoroscopic air contrast upper GI examination was performed utilizing standard techniques with thin and thick barium and effervescent granules. Numerous spot images were obtained. FINDINGS: Dual and single contrast images of the esophagus demonstrate normal caliber, contour, and mucosal pattern. No evidence of stricture, mass, or ulcerations identified. Esophageal peristalsis was normal. There is mild cricopharyngeal achalasia present. Surgical clips are present in the upper quadrant. A small type I hiatal hernia is present. Gastroesophageal reflux is seen up to level the aortic arch. Dual contrast and single contrast images of the stomach demonstrated a contour consistent with prior history of sleeve gastrectomy. The areae gastricae in the fundus appear thickened, which suggests gastritis. No masses or ulcerations are seen. Contrast freely passed into the gastric antrum and duodenal bulb without delay. Single and air-contrast images of the duodenal bulb demonstrate no abnormality. The duodenal sweep has a normal appearance, course, and mucosal fold appearance. The imaged proximal jejunum has a normal fold pattern and caliber. FLUOROSCOPY TIME: 3 minutes 39 seconds Number of Spot Images: 6 Number of Cine: 15 DOSE AREA PRODUCT: 2348 uGy-m2 (microgray-meter squared) FL/FL upper GI w air IMPRESSION: 1. Mild cricopharyngeal achalasia. 2. Small type I hiatal hernia moderate gastroesophageal reflux. 3. Postsurgical changes consistent with prior history of sleeve gastrectomy. 4. Thickened appearance of the areae gastricae in the fundus, which suggests gastritis. This procedure was performed by Luis Enrique Duff PA-C, and supervised by Dr. Dobbs
== END 2024-02-18 09:41 | disposition home or self-care (01) ==
LOC: HO.XRAY 09:40
PROVIDERS: Visit Provider Physician Assistant Surgical
DX: Z98.84 Bariatric surgery status (principal); K21.9 Gastro-esophageal reflux disease without esophagitis
CPT/HCPCS: 74246

== ENCOUNTER → 2024-02-18 09:46 | Outpatient (BNV) | payer MEDICAID, SELFPAY | PROVIDERS: Visit Provider Physician Assistant Surgical | DX: R10.13 Epigastric pain (principal); Z98.84 Bariatric surgery status | CPT/HCPCS: 74246 ==

== ENCOUNTER 2024-02-23 17:04 | Outpatient (REF) | payer MEDICAID, SELFPAY ==
[2024-02-25 14:41] LABS: Alphahydroxymidazolam,GCMS Ur NEGATIVE; Alphahydroxytriazolam, GCMS Ur NEGATIVE; Alprazolam, GCMS Urine NEGATIVE; Flurazepam Metabolite,GCMS Ur NEGATIVE; Lorazepam GCMS Urine NEGATIVE; Nordiazepam, GCMS Urine NEGATIVE; Oxazepam, GCMS Urine NEGATIVE; Temazepam, GCMS Urine NEGATIVE
[2024-02-25 14:42] LABS: Aminoclonazepam, GCMS Urine 149 (H)
== END 2024-02-23 17:05 | disposition home or self-care (01) ==
LOC: HO.HHCLNP 17:04
PROVIDERS: Visit Provider Internal Medicine Geriatric Medicine
DX: M54.50 Low back pain, unspecified (principal); G89.29 Other chronic pain
CPT/HCPCS: 80346

== ENCOUNTER 2024-03-07 11:28 | Outpatient (AMB) | payer MEDICAID, SELFPAY ==
--- NOTE | 2024-03-07 11:32 | MHC.OFFVISWM ---
VS Expanded 03/07/24 11:38 BP 140/73 H Blood Pressure Location Rt brachial Blood Pressure Position Sitting Pulse 74 Pulse Source Pulse Oximeter Temp 97.0 F Temperature Source Temporal Artery Scan Pulse Oximetry 98 Oxygen Delivery Method Room Air Height 5 ft 1 in Weight 180 lb 12.8 oz BMI 34.2 Body Fat % 43.0 Body Fat Mass 77.8 Fat Free Mass 103.0 Visceral Fat Rating 11.0 Body Water % 40.6 Body Water Mass 73.4 Muscle Mass/Score 97.6 Basal Metabolic Rate/Score 1,444 Intake Visit Reasons: (OV) PO LSG 03/03/18 Allergies No Known Allergies [No Known Allergies*] Allergy (Verified 03/07/24 11:40) Medication List - Last Reconciled 03/07/24 by ROB Escalante albuterol sulfate 90 mcg/actuation (ProAir HFA) 2 puffs PO Q4-6H PRN amlodipine 2.5 mg PO DAILY rlzmojdidc-swxvrymbvdgym-dblu 50-325-40 mg 1 - 2 tabs PO Q4H PRN cholecalciferol (vitamin D3) 125 mcg PO DAILY clonazepam 0.5 mg PO Q OTHER DAY PRN diphenhydramine HCl (Banophen) 25 mg PO BEDTIME PRN duloxetine 30 mg PO BID fluticasone propionate 110 mcg/actuation (Flovent HFA) 1 puff inhalation BID fluticasone propionate 44 mcg/actuation (Flovent HFA) 2 puffs inhalation BID inulin 2 grams PO DAILY magnesium hydroxide (Fernandez Milk of Magnesia) 5 mL PO DAILY PRN meclizine 25 mg PO TID PRN multivitamin 1 tab PO DAILY pantoprazole 40 mg PO DAILY sertraline 50 mg PO DAILY sucralfate 10 mL PO BID tramadol 50 mg PO Q12H PRN trazodone 50 mg PO BEDTIME HPI Comments Details: This?is a?48?yo female who is s/p LSG 03/03/2018. Weight +2.2lbs since last OV in December. At last visit- Pt reports a constant burning pain in abdomen. Happens all the time , nothing makes it worse or better. No nausea, no vomiting. Feels constipated, nonbloody stools. Reports she is well hydrated, drinks water and Crystal Light, no soda or juices. No smoking, no EtOH. Tries to avoid acidic foods as those make it work. Since last OV- reflux is no better. Continues on PPI and carafate which do help temporarily. Has no appetite Present meal plan includes: 7am- 30 gram shake 8am - coffee 12pm - 30 gram shake 4pm- meal Pt reports she has been consistent with this. Adequate hydration. Sometimes cannot finish shakes due to reflux. Exercise- walking Heartburn symptoms? yes Score 0-5: 0=no symptoms, 1=noticeable but not bothersome (slight or occasional), 2=noticeable, bothersome but not daily, 3=bothersome and daily, 4=affects daily activities, 5=incapacitating, unable to do daily activities How bad is the heartburn: 5 Heartburn when lying down: 5 Heartburn when standing up: 5 Heartburn after meals: 5 Does heartburn change your diet: 5 Does heartburn wake you up from sleep: 0 Do you have difficulty swallowin Do you have pain with swallowin If you take medication for reflux, does this affect your daily life: 0 Total score: 25 [facility] Surgical History (Updated 10/14/23 @ 10:37 by Janeen Clements [facility]) Hx of laparoscopic partial gastrectomy Family History Mother Hypertension Family history of thyroid problem Father No problems noted. Sister No problems noted. Sister No problems noted. Brother No problems noted. Son No problems noted. Son No problems noted. Social History (System 07/09/23 @ 10:47 by Priscila Dalton) Alcohol intake: never Patient Tobacco Use Status: Never used Tobacco Results Reviewed Results Reviewed: Ordering Physician: Franchesca Dennis Date of Service: 02/18/24 Procedure(s): FL upper GI w air Accession Number(s): [id number] cc: Franchesca Dennis~ EXAMINATION: XR FLUOROSCOPY UPPER GI WITH AIR CLINICAL INFORMATION: Epigastric pain. History of sleeve gastrectomy COMPARISON: Barium swallow 2018 TECHNIQUE: Fluoroscopic air contrast upper GI examination was performed utilizing standard techniques with thin and thick barium and effervescent granules. Numerous spot images were obtained. FINDINGS: Dual and single contrast images of the esophagus demonstrate normal caliber, contour, and mucosal pattern. No evidence of stricture, mass, or ulcerations identified. Esophageal peristalsis was normal. There is mild cricopharyngeal achalasia present. Surgical clips are present in the upper quadrant. A small type I hiatal hernia is present. Gastroesophageal reflux is seen up to level the aortic arch. Dual contrast and single contrast images of the stomach demonstrated a contour consistent with prior history of sleeve gastrectomy. The areae gastricae in the fundus appear thickened, which suggests gastritis. No masses or ulcerations are seen. Contrast freely passed into the gastric antrum and duodenal bulb without delay. Single and air-contrast images of the duodenal bulb demonstrate no abnormality. The duodenal sweep has a normal appearance, course, and mucosal fold appearance. The imaged proximal jejunum has a normal fold pattern and caliber. FLUOROSCOPY TIME: 3 minutes 39 seconds Number of Spot Images: 6 Number of Cine: 15 DOSE AREA PRODUCT: 2348 uGy-m2 (microgray-meter squared) FL/FL upper GI w air IMPRESSION: 1. Mild cricopharyngeal achalasia. 2. Small type I hiatal hernia moderate gastroesophageal reflux. 3. Postsurgical changes consistent with prior history of sleeve gastrectomy. 4. Thickened appearance of the areae gastricae in the fundus, which suggests gastritis. Assessment & Plan Assessment & Plan (1) GERD (gastroesophageal reflux disease): Code(s): K21.9 - Gastro-esophageal reflux disease without esophagitis Category: Medical (2) S/P laparoscopic sleeve gastrectomy: Comment: February 2018 Code(s): Z98.84 - Bariatric surgery status Category: Surgical (3) Obesity: Code(s): E66.9 - Obesity, unspecified Category: Medical Plan GERD score 25, pt still having daily heartburn despite PPI/carafate. Taking PPI BID and carafate BID, can increase carafate to TID-QID. Gave pt access to [employer] keegan and helped her create a meal plan. If no improvement in 1 month of being consistent on this plan (confirmed pt's phone number to communicate via text), will discuss endoscopy with Dr. Caprice Sylvester spent a total of 30 minutes reviewing/updating records, examining the patient and counseling the patient on weight management as detailed above.
[2024-03-07 11:38] VITALS: BP 140/73; PULSE 74; TEMP 36.1; O2SAT 98; BMI 34.2
== END 2024-03-07 12:27 | disposition home or self-care (01) ==
PROVIDERS: PCP Internal Medicine Geriatric Medicine; Visit Provider Physician Assistant Surgical
DX: K21.9 Gastro-esophageal reflux disease without esophagitis (principal); Z98.84 Bariatric surgery status; E66.9 Obesity, unspecified
CPT/HCPCS: 99214

== ENCOUNTER → 2024-03-07 11:28 | Outpatient (BNVA) | payer MEDICAID, SELFPAY | PROVIDERS: PCP Internal Medicine Geriatric Medicine; Visit Provider Physician Assistant Surgical | DX: E66.9 Obesity, unspecified (principal); K21.9 Gastro-esophageal reflux disease without esophagitis; Z68.34 Body mass index [BMI] 34.0-34.9, adult; Z98.84 Bariatric surgery status | CPT/HCPCS: 99212 ==

== ENCOUNTER → 2024-05-11 08:11 | Outpatient (BNVA) | payer MEDICAID, SELFPAY | PROVIDERS: PCP Internal Medicine Geriatric Medicine; Visit Provider Physician Assistant Surgical ==

== ENCOUNTER 2024-06-05 09:20 | Outpatient (AMB) | payer MEDICAID, SELFPAY ==
--- NOTE | 2024-06-05 09:22 | A.OFFVIS_ITS ---
VS Expanded 06/05/24 09:33 BP 120/76 Blood Pressure Location Rt brachial Blood Pressure Position Sitting Pulse 90 Pulse Source Pulse Oximeter Temp 97.6 F Temperature Source Temporal Artery Scan Pulse Oximetry 99 Oxygen Delivery Method Room Air Height 5 ft 1 in Weight 154 lb 6.4 oz BMI 29.2 Body Fat % 40.1 Body Fat Mass 62.0 Fat Free Mass 92.4 Visceral Fat Rating 8.0 Body Water % 42.7 Body Water Mass 66.0 Muscle Mass/Score 87.8 Basal Metabolic Rate/Score 1,293 Intake Visit Reasons: (OV) PO LSG 03/03/18 Physical Integration Practitioner Required: Yes Physical Integration Practitioner Name: Elijah [id number] Information Interpreted: clinical only Allergies No Known Allergies [No Known Allergies*] Allergy (Verified 06/05/24 09:29) Medication List - Last Reconciled 06/05/24 by ROB Escalante albuterol sulfate 90 mcg/actuation (ProAir HFA) 2 puffs PO Q4-6H PRN amlodipine 2.5 mg PO DAILY zdlchzcvuo-xjhbsjirazgrv-hpmh 50-325-40 mg 1 - 2 tabs PO Q4H PRN cholecalciferol (vitamin D3) 125 mcg PO DAILY clonazepam 0.5 mg PO Q OTHER DAY PRN diphenhydramine HCl (Banophen) 25 mg PO BEDTIME PRN duloxetine 30 mg PO BID fluticasone propionate 110 mcg/actuation (Flovent HFA) 1 puff inhalation BID fluticasone propionate 44 mcg/actuation (Flovent HFA) 2 puffs inhalation BID inulin 2 grams PO DAILY magnesium hydroxide (Fernandez Milk of Magnesia) 5 mL PO DAILY PRN meclizine 25 mg PO TID PRN multivitamin 1 tab PO DAILY pantoprazole 40 mg PO BID sertraline 50 mg PO DAILY sucralfate 10 mL PO QID tramadol 50 mg PO Q12H PRN trazodone 50 mg PO BEDTIME HPI Comments Details: 48 yo female s/p LSG 03/03/2018. Here for followup of reflux sx. Weight loss of 26.4lbs since last OV. On PPI BID and carafate up to QID. Pt has been following meal plan created with keegan: 9-11am half Premier shake 12-1pm half celebrate bar 2-4pm half Premier shake 5pm dinner- 6ff/6ff 7-8pm half celebrate bar Today she reports she continues to have some reflux and episodes of emesis- yellow . Slightly better. PFSH Surgical History Hx of laparoscopic partial gastrectomy Family History Mother Hypertension Family history of thyroid problem Father No problems noted. Sister No problems noted. Sister No problems noted. Brother No problems noted. Son No problems noted. Son No problems noted. Social History Alcohol intake: never Patient Tobacco Use Status: Never used Tobacco Assessment & Plan Assessment & Plan (1) GERD (gastroesophageal reflux disease): Code(s): K21.9 - Gastro-esophageal reflux disease without esophagitis Category: Medical (2) S/P laparoscopic sleeve gastrectomy: Comment: February 2018 Code(s): Z98.84 - Bariatric surgery status Category: Surgical (3) Overweight: Code(s): E66.3 - Overweight Category: Medical Plan I had texted pt with Dr Aaron's phone number as he had asked for her to reach out to him directly. She did not understand this as she is primarily [place] speaking and thought the doctor would call her. I showed her how to use the translate function on her iPhone so she could communicate with him via text. She will do so and further plans to be decided by Dr. Aaron. I spent a total of 30 minutes reviewing/updating records, examining the patient and counseling the patient on weight management as detailed above.
[2024-06-05 09:33] VITALS: BP 120/76; PULSE 90; TEMP 36.4; O2SAT 99; BMI 29.2
== END 2024-06-05 09:57 | disposition home or self-care (01) ==
PROVIDERS: PCP Internal Medicine Geriatric Medicine; Visit Provider Physician Assistant Surgical
DX: K21.9 Gastro-esophageal reflux disease without esophagitis (principal); Z98.84 Bariatric surgery status; E66.3 Overweight
CPT/HCPCS: 99214

== ENCOUNTER → 2024-06-05 09:20 | Outpatient (BNVA) | payer MEDICAID, SELFPAY | PROVIDERS: PCP Internal Medicine Geriatric Medicine; Visit Provider Physician Assistant Surgical | DX: K21.9 Gastro-esophageal reflux disease without esophagitis (principal); E66.3 Overweight; Z68.29 Body mass index [BMI] 29.0-29.9, adult; Z90.3 Acquired absence of stomach [part of] | CPT/HCPCS: 99212 ==

== ENCOUNTER 2025-01-09 13:15 | Outpatient (AMB) | payer MEDICAID, SELFPAY ==
--- NOTE | 2025-01-09 13:40 | MHC.OFFVISWM ---
VS Expanded 01/09/25 13:41 BP 141/91 H Blood Pressure Location Rt brachial Blood Pressure Position Sitting Pulse 81 Pulse Source Pulse Oximeter Temp 97.5 F Temperature Source Temporal Artery Scan Pulse Oximetry 99 Oxygen Delivery Method Room Air Height 5 ft 1 in Weight 137 lb BMI 25.9 Body Fat % 33.2 Body Fat Mass 45.4 Fat Free Mass 91.4 Visceral Fat Rating 6.0 Body Water % 47.5 Body Water Mass 65.0 Muscle Mass/Score 86.8 Basal Metabolic Rate/Score 1,254 Intake Visit Reasons: (OV) PO LSG 03/03/18 Allergies No Known Allergies (No Known Allergies*) Allergy (Verified 01/09/25 13:42) Medication List - Last Reconciled 01/09/25 by ROB Escalante albuterol sulfate 90 mcg/actuation (ProAir HFA) 2 puffs PO Q4-6H PRN amlodipine 2.5 mg PO DAILY rxggiiwsqg-eudsrtgclaqcu-smzj 50-325-40 mg 1 - 2 tabs PO Q4H PRN cholecalciferol (vitamin D3) 125 mcg PO DAILY clonazepam 0.5 mg PO Q OTHER DAY PRN diphenhydramine HCl (Banophen) 25 mg PO BEDTIME PRN duloxetine 30 mg PO BID fluticasone propionate 110 mcg/actuation (Flovent HFA) 1 puff inhalation BID fluticasone propionate 44 mcg/actuation (Flovent HFA) 2 puffs inhalation BID inulin 2 grams PO DAILY magnesium hydroxide (Fernandez Milk of Magnesia) 5 mL PO DAILY PRN meclizine 25 mg PO TID PRN multivitamin 1 tab PO DAILY pantoprazole 40 mg PO DAILY sertraline 50 mg PO DAILY sucralfate 10 mL PO BID tramadol 50 mg PO Q12H PRN trazodone 50 mg PO BEDTIME HPI Comments Details: 48 yo female s/p LSG 03/03/2018. Weight loss of 17.4lbs since last OV in Jun 2024. On PPI BID and carafate up to QID. Pt has been following meal plan created with keegan: 9-11am half Premier shake 12-1pm half celebrate bar 2-4pm half Premier shake 5pm dinner- 6ff/6ff 7-8pm half celebrate bar Follows this plan and reports her reflux is better. However she reports she never ended up texting Dr Aaron as I tried to instruct her to do after last visit. She does report some fatigue. PFSH Surgical History Hx of laparoscopic partial gastrectomy Family History Mother Hypertension Family history of thyroid problem Father No problems noted. Sister No problems noted. Sister No problems noted. Brother No problems noted. Son No problems noted. Son No problems noted. Social History Alcohol intake: never Patient Tobacco Use Status: Never used Tobacco Assessment & Plan Assessment & Plan (1) S/P laparoscopic sleeve gastrectomy: Comment: February 2018 Code(s): Z98.84 - Bariatric surgery status Category: Medical (2) Overweight: Code(s): E66.3 - Overweight Category: Medical (3) GERD (gastroesophageal reflux disease): Code(s): K21.9 - Gastro-esophageal reflux disease without esophagitis Category: Medical Plan Pt to continue above plan. Her reflux has improved and she has continued to lose weight on it. Will order labs for complaints of fatigue and easy bruising. RTC 6mo, pt to call office for any questions/concerns prior to next appt. Orders: Orders TSH reflex Free T4 Today Z98.84 - Bariatric surgery status Vitamin A Today Z98.84 - Bariatric surgery status Zinc Today Z98.84 - Bariatric surgery status Complete Blood Count Auto Diff Today Z98.84 - Bariatric surgery status IRON PROFILE Today Z98.84 - Bariatric surgery status Vitamin D 25-OH Total Today Z98.84 - Bariatric surgery status Ferritin Today Z98.84 - Bariatric surgery status C Reactive Protein Today Z98.84 - Bariatric surgery status Vitamin B1 Today Z98.84 - Bariatric surgery status Vitamin B12 and Folate Today Z98.84 - Bariatric surgery status Comprehensive Met. Panel Today Z98.84 - Bariatric surgery status Insulin Today Z98.84 - Bariatric surgery status Lipid Panel Today Z98.84 - Bariatric surgery status
[2025-01-09 13:41] VITALS: BP 141/91; PULSE 81; TEMP 36.4; O2SAT 99; BMI 25.9
--- OUTSIDE RECORDS SUMMARY | 2025-01-09 13:56 | XMS_ITS | Clinical Summary ---
Author Organization [facility] [address] [place] [address] [place] [phone] Phone Care Team Providers Care Oil Field Caser Name Role Phone Name, Zackery BROOKS Primary Care Provider [phone] Allergies No known active allergies Medications betamethasone, augmented, (DIPROLENE-AF) 0.05 % cream Apply topically 2 times daily. Active diclofenac (CATAFLAM) 50 mg tablet Take 50 mg by mouth 3 times daily. Active magnesium oxide 250 mg magnesium tablet Take 1 Tablet by mouth daily. Active meclizine (ANTIVERT) 25 mg tablet Take by mouth. Activ e naproxen (EC NAPROSYN) 500 mg EC tablet Take by mouth. Ac tive omeprazole (PRILOSEC) 20 mg tablet,delayed release (DR/EC) Take by mouth. Active sertraline (ZOLOFT) 100 mg tablet Take 100 mg by mouth daily. Active CHOLECALCIFEROL , VITAMIN D3, ORAL Vitamin D, Cholecalcifero l, 1000 UNITS Tab Take by mouth Active Active Problems Problem Noted Date Diagnosed Date Hematuria, gross 08/10/2024 Assessment & Plan (08/10/2024 9:14 AM EST): Unclear etiology. I recommended she see Urology for further evaluation. I will also obtain UA today. She was informed that she should hear back in 1-2 weeks with an appointment date. If not, she should call back to our office and inquire on getting this arranged. She voiced understanding and agreed. Constipation 01/25/2024 Overview (08/01/2024): Last Assessment & Plan: I counseled her that her goal with constipation management should be for daily BM. I encouraged her to increase her fiber and water if able. She was also encouraged to use Colace BID and add magnesium oxide supplementation nightly. She agreed. If not improving, should see PCP for possible referral to GI. Low libido 01/25/2024 Overview (08/01/2024): Last Assessment & Plan: Discussed that the etiology of low libido is often multifactorial. Factors can include medication side effects, stress, symptoms of depression or anxiety, body image, time with partner, busy home life, and in some cases pain. I explained that I generally recommend scheduling alone time, romantic time and even sex with her partner to regain a positive association and perhaps improve libido over time. She agrees and plans to come back if not improving with working on these things. Pelvic cramping 01/25/2024 Overview (08/01/2024): Last Assessment & Plan: Based on history and exam, likely GI in nature. No evidence of die mounter cause of her pain. Assessment & Plan (08/10/2024 9:13 AM EST): Will obtain pelvic US to evaluate ovaries again since this is ongoing, but I do not suspect Hand Brim Ironer etiology. I encouraged her to continue to follow with GI and discuss other methods to treat her constipation. Hypertension 11/02/2023 Chronic low back pain 07/03/2022 Depression with anxiety 06/30/2022 Heart murmur 07/14/2017 Overview (08/10/2024): Normal ECHO 2018 at [facility] [place]: - The left ventricular systolic function is normal. The visually estimated ejection fraction is between 55-60%. - No obvious valvular pathology seen on this study. Heartburn 07/14/2017 Migraine without aura, not refractory 07/14/2017 Resolved Problems Problem Noted Date Diagnosed Date Resolved Date H/O total hysterectomy 12/16/202208/10 Overview (08/10/2024): Robotic assisted hysterectomy with salpingectomy 11/2022 Uterine fibroid 10/13/2017 08/10/2024 Overview (08/10/2024): 12/2021- There is a fundal right lateral fibroid extending from the serosa to the mucosa measuring 3.7 x 3.3 x 3.5 cm. There is a left posterior intramural and subserosal fibroid measuring 4.1 x 4.9 x 3.7 cm. There is an anterior subserosal fibroid measuring 2.4 x 2.3 x 1.7cm Last Assessment & Plan: Discussed with patient that growth of fibroids over the past 8 years is not concerning. We discussed that fibroids are nearly always bening and that cancer within a fibroid is very rare and typically results in very rapid growth in the size of the fibroid. We discussed that treatment for fibroids is only necessary if the patient is symptomatic - common symptoms being heavy or painful menses. See AUB plan above. Urinary incontinence 10/13/2017 025 Carpal tunnel syndrome 07/14/201708/10 Obesity (BMI 30-39.9) 07/14/20172024 Surgical History Surgery Date Site/Laterality Comments TUBAL LIGATION PROCEDURE: HISTORICAL TUBAL LIGATION OTHER SURGICAL HISTORY PROCEDURE: ENDOSCOPY OF URINARY TRACT/STONE HYSTEROSCOPY 10/10/2012 PROCEDURE: MD HYSTEROSCOPY BX ENDOMETRIUM&/POLYPC W/WO D&C OTHER SURGICAL HISTORY 12/31/2014 PROCEDURE: MD HYSTEROSCOPY ENDOMETRIAL ABLATION; COMMENT: benign endometrium (secretory) ABDOMINAL SURGERY PROCEDURE: HISTORICAL ABDOMINAL SURGERY; COMMENT: abdominoplasty BREAST REDUCTION PROCEDURE: MD BREAST REDUCTION; COMMENT: MANY YRS AGO OTHER SURGICAL HISTORY PROCEDURE: MD GASTRIC RSTCV W/PRTL GASTRECTOMY 50-100 CM; COMMENT: Gastric sleeve CHOLECYSTECTOMY PROCEDURE: HISTORICAL CHOLECYSTECTOMY HYSTERECTOMY 11/2022 PROCEDURE: HISTORICAL HYSTERECTOMY; COMMENT: RAMEZ/SCOOBY for AUB Medical History Medical History Date Comments Depression DX:Depression Anxiety DX:Anxiety GERD (gastroesophageal reflu x disease) DX:GERD (gastroesophageal re flux disease); COMMENT: stomach ulcers Renal stone DX:Renal stone DUB (dysfunctional uterine bleeding) DX:DUB (dysfunctional uterine bleeding) Headache DX:Headache Asthma DX:Asthma HTN (hypertension) DX:HTN (hyper tension) Uterine fibroid 05/11/2022 DX:Uterine fibro id; COMMENT: 12/2021- There is a fundal right lateral fibroid extending from the serosa to the mucosa measuring 3.7 x 3.3 x 3.5 cm. There is a left posterior intramural and subserosal fibroid measuring 4.1 x 4.9 x 3.7 cm. There is an anterior subserosal fibroid measuring 2.4 x 2.3 x 1.7cm Abnormal uterine bleeding 06/15/2022 DX:Abn ormal uterine bleeding Uterine fibroid 10/13/201712/2021- There is a fundal right lateral fibroid extending from the serosa to the mucosa measuring 3.7 x 3.3 x 3.5 cm. There is a left posterior intramural and subserosal fibroid measuring 4.1 x 4.9 x 3.7 cm. There is an anterior subserosal fibroid measuring 2.4 x 2.3 x 1.7cm Last Assessment & Plan: Discussed with patient that growth of fibroids over the past 8 years is not concerning. Carpal tunnel syndrome 07/14/2017 Urinary incontinence 10/13/2017 H/O total hysterectomy 12/16/2022 Robotic a ssisted hysterectomy with salpingectomy 11/2022 Family History Medical History Relation Name Comments Ovarian cancer Maternal Grandmother Decea sed Breast cancer Neg Hx Colon cancer Neg Hx Uterine cancer Neg Hx Relation Name Status Comments Brother Alive Father Alive Maternal Grandfather Maternal Grandmother Mother Alive Paternal Grandfather Paternal Grandmother Alive Sister 1 Alive Sister 2 Alive Social History Tobacco Use Types Packs/Day Years Used Date Smoking Tobacco: Never Smokeless Tobacco: Never Alcohol Use Standard Drinks/Week Comments No 0 (1 standard drink = 0.6 oz pur e alcohol) Comments No Sex and Gender Information Value Date Recorded Sex Assigned at Not on file Legal Sex Female 6:19 PM EST Gender Identity Not on file Sexual Orientation Not on file Obstetrics History Para Term AB IAB SAB Ectopic Multiple Livin g Live Births 2 2 2 Date Outcome GA Total Labor Labor/2nd/3rd Weight Sex Type Anes PTL Betzy A1 A5 Name Clin Term Term Last Filed Vital Signs Vital Sign Reading Time Taken Comments Blood Pressure 129/94 08/10/2024 8:56 AM EST Pulse 77 08/10/2024 8:56 AM EST Temperature - - Respiratory Rate - - Oxygen Saturation - - Inhaled Oxygen Concentration - - Weight 64.9 kg (143 lb) 08/10/2024 8:56 AM EST Height 165.1 cm (5' 5 ) 01/25/2024 8:39 AM EDT Body Mass Index 23.8 01/25/2024 8:39 AM EDT Plan of Treatment Health Maintenance Due Date Last Done Comments Hepatitis B Vaccines (1 of 3 - 19+ 3-dose series) 12/26/1995 Colorectal Cancer Screening: Colonoscopy 06/13/2022 HIV Screening 06/13/2022 Hepatitis C Screening 06/13/2022 Social Influencers of Health Screening 06/13/2022 Hypertension/CHF/CAD Annual BMP Blood Test 08/10/2024 Depression Screening 11/21/2024 11/22/2023 Influenza Vaccine (#1) 2025 05/02/2024 Cervical Cancer Screening: HPV 02/06/2026 02/06/2021 Breast Cancer Screening 04/27/2026 04/27/20, 04/27/2024, 12/26/2021, Additional history exists DTaP,Tdap,and Td Vaccines (3 - Td or Tdap) 07/14/2027 07/14/2017, 11/06/2015 Cholesterol Screening (Lipid Panel) 10/17/2028 10/18/2023 COVID-19 Vaccine Completed 05/02/2024, 09/18/2020 HIB Vaccines Aged Out No longer eligi ble based on patient's age to complete this topic HPV Vaccines Aged Out No longer eligi ble based on patient's age to complete this topic Hepatitis A Vaccines Aged Out No long er eligible based on patient's age to complete this topic IPV Vaccines Aged Out No longer eligi ble based on patient's age to complete this topic MMR Vaccines Aged Out No longer eligi ble based on patient's age to complete this topic Meningococcal ACWY Vaccine Aged Out N o longer eligible based on patient's age to complete this topic Meningococcal B Vaccine Aged Out No l onger eligible based on patient's age to complete this topic Pneumococcal Vaccine: Pediatrics (0 to 5 Years) and At-Risk Patients (6 to 49 Years) Aged Out No longer eligible based on patient's age to complete this topic RSV Immunization Patients Under 20 months Aged Out No longer eligible based on patient's age to complete this topic Varicella Vaccines Aged Out No longer eligible based on patient's age to complete this topic Procedures Procedure Name Priority Date/Time Associated Diagnosis Comments SCR MAMMO BI INCL CAD Routine 04/27/2024 10:52 AM EDT Encounter for screening mammogram for malignant neoplasm of breast HM HPV Routine 02/06/2021 from Last 3 Months or Most Recently Relevant to Health Maintenance Results * SCR MAMMO BI INCL CAD (04/27/2024 10:52 AM EDT) Anatomical Region Laterality Modality Radiographic Sophie ging 01/25/2024 8:56 AM EDT Narrative 04/27/2024 5:50 PM EDT This is a summary report. The complete report is available in the patient's medical record. If you cannot access the medical record, please contact the sending organization for a detailed fax or copy. BILATERAL 3D DIGITAL SCREENING MAMMOGRAM History: Routine screening. No current breast complaints. Comparison: Mammogram from 12/26/2021 Technique: Bilateral full-field digital 3D mammography was performed using standard CC and MLO projections, right breast exaggerated CC CAD was used to evaluate this mammogram. Findings: Density: There are scattered areas of fibroglandular density-B RIGHT: No suspicious masses, groups of microcalcification or areas of architectural distortion identified. Stable typically benign parenchymal asymmetries LEFT: No suspicious masses, groups of microcalcifications or areas of architectural distortion identified. Stable typically benign parenchymal asymmetries IMPRESSION: : 1. No mammographic evidence of malignancy. BI-RADS Category 2 benign findings Recommendation: Routine annual screening mammography is recommended [facility] [address] [address] Procedure Note Zhane Rios MD - 05/06/2024 This is a summary report. The complete report is available in thepatient's medical record. If you cannot access the medical record, pleasecontact the sending organization for a detailed fax or copy. BILATERAL 3D DIGITAL SCREENING MAMMOGRAM History: Routine screening. No current breast complaints. Comparison: Mammogram from 12/26/2021 Technique: Bilateral full-field digital 3D mammography was performed usingstandard CC and MLO projections, right breast exaggerated CC CAD was used to evaluate this mammogram. Findings: Density: There are scattered areas of fibroglandular density-B RIGHT: No suspicious masses, groups of microcalcification or areas ofarchitectural distortion identified. Stable typically benign parenchymalasymmetries LEFT: No suspicious masses, groups of microcalcifications or areas ofarchitectural distortion identified. Stable typically benign parenchymalasymmetries IMPRESSION: : 1. No mammographic evidence of malignancy. BI-RADS Category 2 benign findings Recommendation: Routine annual screening mammography is recommended [facility] [address] [place], [place] [phone] Kayleen Pino MD IMG XR PROCEDURES Final Res ult * Cervical Cancer Screening: HPV (02/06/2021) Pathologist [facility] Cervical Cancer Screening: HPV negative, abstracted Historical Provider MD HEALTH MAINTENANCE Final Result from Last 3 Months or Most Recently Relevant to Health Maintenance Insurance MEDICAID - [place] Care Teams Oil Field Caser Relationship Specialty Start Date End Date Name, MD Zackery [address] [place] [address] PCP - General Internal Medicine 02/06/21
--- OUTSIDE RECORDS SUMMARY | 2025-01-09 13:56 | XMS_ITS | Encounter Summary ---
Author Organization [employer] Address [address] [facility] 7[address] [place] [address] Care Team Providers Care Gas Burner Operator Name Role Phone Name, Zackery BROOKS Primary Care Provider [phone] Reason for Visit * Reason Comments Med Refill Encounter Details Date Type Department Care Team ([facility] Contact Info) Description 10/12/2023 Refill [facility] [address] [place], [place] [phone] Dallin Trevino FNP Social History Tobacco Use Types Packs/Day Years Used Date Smoking Tobacco: Never Smokeless Tobacco: Never Alcohol Use Standard Drinks/Week Comments Never 0 (1 standard drink = 0.6 oz pur e alcohol) Depression Answer Date Recorded Patient Health Questionnaire-9 Score 6 09/21/2023 Patient Health Questionnaire-9 Score 6 09/21/2023 Last PHQ-9: Questionnaire Data Not on file 0 09/21/2023 Housing Stability Answer Date Recorded What is your housing situation today? I have molly canela 04/19/[address] you li ve. Do you have problems with any of the following? None of the above 04/19/2023 Food Insecurity Answer Date Recorded Within the past 12 months, y ou worried that your food would run out before you got money to buy more: Never True 04/19/2023 Within the past 12 months,th e food you bought just didn't last and you didn't have enough money to get more: Never True Transportation Answer Date Recorded In the past 12 months, has l ack of transportation kept you from medical appts, meetings, work or from getting things needed for daily living? No 04/19/2023 Utilities Answer Date Recorded In the past 12 months, has t he electric, gas, oil or water company threatened to shut off services in your home? No 04/19/2023 Depression Answer Date Recorded Patient Health Questionnaire-2 Score 0 09/21/2023 Comments Unknown Sex and Gender Information Value Date Recorded Sex Assigned at Female 05/04/2022 10:32 AM EDT Legal Sex Female 10:32 AM EDT Gender Identity Female 05/04/2022 10:32 AM EDT Sexual Orientation Straight 05/04/2022 10 :32 AM EDT documented as of this encounter Plan of Treatment Upcoming Encounters Date Type Department Care Team (Late st Contact Info) Description 02/16/2025 10:00 AM EDT Office Visit [facility] [address] [place] [phone] NameZackery MD [address] [place] [address] 02/26/2025 9:00 AM EDT Clinical Support [facility] [address] [place] [address] Chasidy Leong, NIECY 03/08/2025 10:00 AM EDT Office Visit [facility] [address] [place], [place] [phone] Jillian Wiseman OD [address] [place] [address] documented as of this encounter Visit Diagnoses Not on filedocumented in this encounter Additional Health Concerns Assessment Noted Time PHQ-9 Depression Total Score: 6 09/21/19 24 9:53 AM EDT documented as of this encounter Care Teams Gas Burner Operator Relationship Specialty Start Date End Date Name, MD Zackery [address] [place] [address] PCP - General Family Medicine 07/05/18 documented as of this encounter
== END 2025-01-09 13:52 | disposition home or self-care (01) ==
LOC: HO.HBS 13:16
PROVIDERS: PCP Internal Medicine Geriatric Medicine; Visit Provider Physician Assistant Surgical
DX: E66.3 Overweight (principal); Z68.25 Body mass index [BMI] 25.0-25.9, adult; Z90.3 Acquired absence of stomach [part of]; Z98.84 Bariatric surgery status; K21.9 Gastro-esophageal reflux disease without esophagitis
CPT/HCPCS: 99214

== ENCOUNTER → 2025-01-09 13:15 | Outpatient (BNVA) | payer MEDICAID, SELFPAY | PROVIDERS: PCP Internal Medicine Geriatric Medicine; Visit Provider Physician Assistant Surgical | DX: E66.3 Overweight (principal); K21.9 Gastro-esophageal reflux disease without esophagitis; R53.83 Other fatigue; Z68.25 Body mass index [BMI] 25.0-25.9, adult; Z90.3 Acquired absence of stomach [part of] | CPT/HCPCS: 99212 ==

== ENCOUNTER 2025-01-15 08:25 | Outpatient (REF) | payer MEDICAID, SELFPAY ==
--- OUTSIDE RECORDS SUMMARY | 2025-01-15 08:31 | XMS_ITS | Encounter Summary ---
Author Organization [employer] Address [address] [facility] [address] [place] [address] Care Team Providers Care Deck Specialist Name Role Phone Name, Zackery BROOKS Primary Care Provider [phone] Reason for Visit * Reason Comments Med Refill Encounter Details Date Type Department Care Team ([facility] Contact Info) Description 10/12/2023 Refill [facility] [address] [place], [place] [phone] Dallin Trevino FNP Social History Tobacco Use [...] Description 02/16/2025 10:00 AM EDT Office Visit [facility] [address] [place] [phone] NameZackery MD [address] [place] [address] 02/26/2025 9:00 AM EDT Clinical Support [facility] [address] [place] [address] Chasidy Leong, NIECY 03/08/2025 10:00 AM EDT Office Visit [facility] [address] [place], [place] [phone] Jillian Wiseman OD [address] [place] [address] documented as of this encounter Visit Diagnoses Not on filedocumented in this encounter Additional Health Concerns Assessment Noted Time PHQ-9 Depression Total Score: 6 09/21/19 24 9:53 AM EDT documented as of this encounter Care Teams Deck Specialist Relationship Specialty Start Date End Date Name, MD Zackery [address] [place] [address] PCP - General Family Medicine 07/05/18 documented as of this encounter
--- OUTSIDE RECORDS SUMMARY | 2025-01-15 08:31 | XMS_ITS | Clinical Summary ---
Author Organization [facility] [address] [place] [address] [place] [phone] Phone Care Team Providers Care Lockstitch Waistband Setter Name Role Phone Name, Zackery BROOKS Primary Care Provider [phone] Allergies No known active allergies Medications betamethasone, [...] likely GI in nature. No evidence of bean sprout laborer cause of her pain. Assessment & Plan (08/10/2024 9:13 AM EST): Will obtain pelvic US to evaluate ovaries again since this is ongoing, but I do not suspect Services Tech etiology. I encouraged her to continue to follow with GI and discuss other methods to treat her constipation. Hypertension 11/02/2023 Chronic low back pain 07/03/2022 Depression with anxiety 06/30/2022 Heart murmur 07/14/2017 Overview (08/10/2024): Normal ECHO 2018 at [facility] [place]: - The left ventricular systolic function is [...] ENDOSCOPY OF URINARY TRACT/STONE HYSTEROSCOPY 10/10/2012 PROCEDURE: [place] HYSTEROSCOPY BX ENDOMETRIUM&/POLYPC W/WO D&C OTHER SURGICAL HISTORY 12/31/2014 PROCEDURE: [place] HYSTEROSCOPY ENDOMETRIAL ABLATION; COMMENT: benign endometrium (secretory) ABDOMINAL SURGERY PROCEDURE: HISTORICAL ABDOMINAL SURGERY; COMMENT: abdominoplasty BREAST REDUCTION PROCEDURE: [place] BREAST REDUCTION; COMMENT: MANY YRS AGO OTHER SURGICAL HISTORY PROCEDURE: [place] GASTRIC RSTCV W/PRTL GASTRECTOMY 50-100 CM; COMMENT: [...] Recommendation: Routine annual screening mammography is recommended [facility] [address] [address] Procedure Note Zhane Rios MD - 05/06/2024 [...] Recommendation: Routine annual screening mammography is recommended [facility] [address] [place], [place] [phone] Kayleen Pino MD IMG XR PROCEDURES Final Res ult * Cervical Cancer Screening: HPV (02/06/2021) Pathologist [facility] Cervical Cancer Screening: HPV negative, abstracted Historical Provider MD HEALTH MAINTENANCE Final Result from Last 3 Months or Most Recently Relevant to Health Maintenance Insurance MEDICAID - [place] Care Teams Lockstitch Waistband Setter Relationship Specialty Start Date End Date Name, MD Zackery [address] [place] [address] PCP - General Internal Medicine 02/06/21
[2025-01-15 08:39] LABS: MANUAL DIFF FLAG NO
[2025-01-15 09:11] LABS: Hematocrit 39.2 % (37.0-47.0); Hemoglobin 13.0 g/dl (12.0-16.0); Imm Gran Abs Auto 0.02 X10*3/uL (0.00-0.03); Imm Gran Pct Auto 0.3 % (0.0-0.4); Lymphocytes Absolute Auto 2.0 X10*3/uL (1.2-4.9); Mean Corpuscular HGB Conc 33.2 g/dl (31.0-35.0); Mean Corpuscular Hemoglobin 30.3 pg (27.0-33.0); Mean Corpuscular Volume 91.4 fL (80.0-98.0); NRBC Abs Auto 0.000 X10*3/uL (0.0-0.012); NRBC Pct Auto 0.0 /100WBC (0.0-0.2); Platelet Count 228 X10*3/uL (160-400); Red Blood Count 4.29 X10*6/uL (4.20-5.50); White Blood Count 5.8 X10*3/uL (4.8-10.8)
[2025-01-15 09:42] LABS: Alanine Aminotransferase 14 U/L (0-31); Albumin Level 4.3 g/dL (3.5-5.0); Alkaline Phosphatase 48 U/L (39-117); Anion Gap 8 (12-20); Aspartate Amino Transferase 19 U/L (5-31); Blood Urea Nitrogen 13 mg/dL (9-16); Calcium 9.2 mg/dL (8.4-10.2); Carbon Dioxide 26 mmol/L (22-29); Chloride 113 mmol/L (96-108); Cholesterol 178 mg/dL (<200); Estimated Glomerular Filt Rate > 60; HDL Cholesterol 50 mg/dL (>40); Iron 98 mcg/dL (30-160); Percent Iron Saturation 40 % (15-50); Potassium 4.6 mmol/L (3.3-5.1); Sodium 142 mmol/L (135-145); Total Iron Binding Capacity 247 mcg/dL (228-428); Total Protein 7.2 g/dL (6.5-8.0); Triglycerides 54 mg/dL (<150); Unsaturated Iron Binding 149 ug/dL
[2025-01-15 10:02] LABS: Ferritin 112 ng/mL (10-250)
[2025-01-15 10:16] LABS: Folate 8.8 ng/mL (> or = 4.0); Vitamin B12 871 pg/mL (200-900)
== END 2025-01-15 08:26 | disposition home or self-care (01) ==
LOC: HO.LAB 08:25
PROVIDERS: PCP Internal Medicine Geriatric Medicine; Visit Provider Physician Assistant Surgical
DX: Z98.84 Bariatric surgery status (principal)
CPT/HCPCS: 36415; 80053; 80061; 82306; 82607; 82728; 82746; 83525; 83540; 84425; 84443; 84590; 84630; 85025; 86140

== ENCOUNTER 2025-06-06 11:16 | Outpatient (AMB) | payer MEDICAID, SELFPAY ==
--- NOTE | 2025-06-06 11:25 | MHC.OFFVISWM ---
VS Expanded 06/06/25 11:35 BP 140/79 H Blood Pressure Location Rt brachial Blood Pressure Position Sitting Pulse 83 Pulse Source Pulse Oximeter Temp 97.9 F Temperature Source Temporal Artery Scan Pulse Oximetry 100 Oxygen Delivery Method Room Air Height 5 ft 1 in Weight 152 lb 4 oz BMI 28.8 Body Fat % 36.9 Body Fat Mass 56.2 Fat Free Mass 96.2 Visceral Fat Rating 8.0 Body Water % 44.9 Body Water Mass 68.4 Muscle Mass/Score 91.2 Basal Metabolic Rate/Score 1,326 Intake Visit Reasons: (OV) PO LSG 03/03/18 Relay Man Required: No Accompanied by: Self / Same As Patient Allergies No Known Allergies (No Known Allergies*) Allergy (Verified 06/06/25 11:30) Medication List - Last Reconciled 06/06/25 by ROB Escalante albuterol sulfate 90 mcg/actuation (ProAir HFA) 2 puffs PO Q4-6H PRN amlodipine 2.5 mg PO DAILY eejhizkczd-qvolhiajdivas-zocl 50-325-40 mg 1 - 2 tabs PO Q4H PRN cholecalciferol (vitamin D3) 125 mcg PO DAILY clonazepam 0.5 mg PO Q OTHER DAY PRN diphenhydramine HCl (Banophen) 25 mg PO BEDTIME PRN duloxetine 30 mg PO BID fluticasone propionate 110 mcg/actuation (Flovent HFA) 1 puff inhalation BID fluticasone propionate 44 mcg/actuation (Flovent HFA) 2 puffs inhalation BID inulin 2 grams PO DAILY meclizine 25 mg PO TID PRN multivitamin 1 tab PO DAILY pantoprazole 40 mg PO DAILY sertraline 50 mg PO DAILY sucralfate 10 mL PO BID tramadol 50 mg PO Q12H PRN trazodone 50 mg PO BEDTIME zinc gluconate 30 mg PO DAILY HPI Comments Details: 48 yo female s/p LSG 03/03/2018. Weight gain of 15.4lbs since last OV in January 2025. On PPI BID and carafate up to QID. She reports after much discussion that she was actually on zepbound during our last visit in summer. She did not mention this at the time. Was very successful with weight loss on this medication but then stopped due to lack of insurance coverage and has now regained weight. Pt has been following meal plan created with keegan: 9-11am half Premier shake 12-1pm half celebrate bar 2-4pm half Premier shake 5pm dinner- 6ff/6ff 7-8pm half celebrate bar Walks 3x/week, 45 min outside [facility] Surgical History Hx of laparoscopic partial gastrectomy Family History Mother Hypertension Family history of thyroid problem Father No problems noted. Sister No problems noted. Sister No problems noted. Brother No problems noted. Son No problems noted. Son No problems noted. Social History Alcohol intake: never Patient Tobacco Use Status: Never used Tobacco Physical Exam Vital Signs: Last Vital Signs Temp 97.9 F 06/06/25 11:35 Pulse 83 06/06/25 11:35 BP 140/79 H 06/06/25 11:35 Pulse Ox 100 06/06/25 11:35 Oxygen Delivery Method Room Air 06/06/25 11:35 BMI result Body Mass Index 28.8 Assessment & Plan Assessment & Plan (1) S/P laparoscopic sleeve gastrectomy: Comment: February 2018 Code(s): Z98.84 - Bariatric surgery status Category: Surgical (2) Overweight: Code(s): E66.3 - Overweight Category: Medical Plan Will send letter to pt's PCP in support of continued treatment with Zepbound, per her request. She will continue above meal plan. I encouraged her to increase exercise. She is frustrated by lack of options for weight loss. RTC 4mo.
[2025-06-06 11:35] VITALS: BP 140/79; PULSE 83; TEMP 36.6; O2SAT 100; BMI 28.8
--- OUTSIDE RECORDS SUMMARY | 2025-06-06 13:33 | XMS_ITS | Encounter Summary ---
Author Organization [employer] Address [address] [place] [address] 7 [place] [address] Care Team Providers Care Clinic Lead Name Role Phone Name, Zackery BROOKS Primary Care Provider [phone] Reason for Visit * Reason Onset Date Comments Appointment Request 09/12/2024 Encounter Details Date Type Department Care Team ([facility] Contact Info) Description 09/12/2024 Telephone [facility] [address] [place], [place] [phone] Name, MD Zackery [address] [place] [address] Appointment Request Social History Tobacco Use Types Packs/Day Years Used Date Smoking Tobacco: Never Smokeless Tobacco: Never Alcohol Use Standard Drinks/Week Comments Never 0 (1 standard drink = 0.6 oz pur e alcohol) Alcohol Answer Date Recorded Frequency of Alcohol Consumption Not on file 01/31/2024 Average Number of Drinks Not on file 024 Frequency of Binge Drinking Not on file 01/03 Score 0 01/31/2024 Depression Answer Date Recorded Patient Health Questionnaire-9 Score 8 11/22/2023 Patient Health Questionnaire-9 Score 8 11/22/2023 Last PHQ-9: Questionnaire Data Not on file 0 11/22/2023 Housing Stability Answer Date Recorded What is your housing situation today? I have molly canela 01/31/[address] you li ve. Do you have problems with any of the following? None of the above 01/31/2024 Food Insecurity Answer Date Recorded Within the past 12 months, y ou worried that your food would run out before you got money to buy more: Never True 01/31/2024 Within the past 12 months,th e food you bought just didn't last and you didn't have enough money to get more: Never True Transportation Answer Date Recorded In the past 12 months, has l ack of transportation kept you from medical appts, meetings, work or from getting things needed for daily living? No 01/31/2024 Utilities Answer Date Recorded In the past 12 months, has t he electric, gas, oil or water company threatened to shut off services in your home? No 01/31/2024 Depression Answer Date Recorded Patient Health Questionnaire-2 Score 2 11/22/2023 Internet Access Answer Date Recorded Internet Access Q1 No 03/06/2024 Internet Access Q2 I do not want or need it 08/2023 Comments Unknown Sex and Gender Information Value Date Recorded Sex Assigned at Female 05/04/2022 10:32 AM EDT Legal Sex Female 10:32 AM EDT Gender Identity Female 05/04/2022 10:32 AM EDT Sexual Orientation Straight 05/04/2022 10 :32 AM EDT documented as of this encounter Miscellaneous Notes * Telephone Encounter - Bernard Luu - 09/12/2024 10:53 AM EDT Tc from pt requesting a Apt with PCP to get there weight check done to see if it will help get the PA to be Approved. Contact pt at [phone] documented in this encounter Plan of Treatment Upcoming Encounters Date Type Department Care Team (Late st Contact Info) Description 08/01/2025 2:15 PM EST Office Visit [facility] [address] [place] [phone] Name, MD Zackery [address] [place] [address] 08/23/2025 9:00 AM EST Clinical Support [address] [address] Chasidy Leong RN documented as of this encounter Visit Diagnoses Not on filedocumented in this encounter Additional Health Concerns Assessment Noted Time PHQ-9 Depression Total Score: 8 11/22/19 24 10:00 AM EDT documented as of this encounter Care Teams Clinic Lead Relationship Specialty Start Date End Date Name, MD Zackery [address] [place] [address] PCP - General Family Medicine 07/05/18 documented as of this encounter
--- OUTSIDE RECORDS SUMMARY | 2025-06-06 13:33 | XMS_ITS | Encounter Summary ---
Author Organization [employer] Address [address] [facility] 7t [place] [address] Care Team Providers Care Gambling Dealer Name Role Phone Name, Zackery BROOKS Primary Care Provider [phone] Reason for Visit * Reason Comments Med Refill Encounter Details Date Type Department Care Team ([facility] Contact Info) Description 10/12/2023 Refill [facility] [address] [place], [place] [phone] Dallin Trevino FNP Social History Tobacco Use [...] Description 08/01/2025 2:15 PM EST Office Visit [address] [address] Name, MD Zackery [address] [place] [address] 08/23/2025 9:00 AM EST Clinical Support [address] [address] Chasidy Leong, NIECY documented as of this encounter Visit Diagnoses Not on filedocumented in this encounter Additional Health Concerns Assessment Noted Time PHQ-9 Depression Total Score: 6 09/21/19 24 9:53 AM EDT documented as of this encounter Care Teams Gambling Dealer Relationship Specialty Start Date End Date Zackery Hope MD [address] [place] [address] PCP - General Family Medicine 07/05/18 documented as of this encounter
--- OUTSIDE RECORDS SUMMARY | 2025-06-06 13:33 | XMS_ITS | Encounter Summary ---
Author Organization [employer] Address [address] [place] [address] 7 [place] [address] Care Team Providers Care Tree Worker Name Role Phone Name, Zackery BROOKS Primary Care Provider [phone] Reason for Visit * Reason Comments Med Refill Encounter Details Date Type Department Care Team ([facility] Contact Info) Description 05/19/2023 Refill [facility] [address] [place], [place] [phone] Name, MD Zackery [address] [place], [place] [phone] Chronic low back pain, unspecified back pain laterality, unspecified whether sciatica present Social History Tobacco Use Types Packs/Day Years Used Date Smoking Tobacco: Never Smokeless Tobacco: Never Alcohol Use Standard Drinks/Week Comments Never 0 (1 standard drink = 0.6 oz pur e alcohol) Depression Answer Date Recorded Patient Health Questionnaire-9 Score 4 05/10/2023 Patient Health Questionnaire-9 Score 4 05/10/2023 Last PHQ-9: Questionnaire Data Not on file 1 07/10/2022 Housing Stability Answer Date Recorded What is [...] enough money to get more: Never True 10/ Transportation Answer Date Recorded In the past [...] Answer Date Recorded Patient Health Questionnaire-2 Score 1 05/10/2023 Comments Unknown Sex and Gender Information Value [...] Description 08/01/2025 2:15 PM EST Office Visit [address] [address] Name, MD Zackery [address] [place] [address] 08/23/2025 9:00 AM EST Clinical Support [address] [address] Chasidy Leong RN documented as of this encounter Visit Diagnoses Diagnosis Chronic low back pain, unspecified back pain laterality, unspecified whether sciatica present documented in this encounter Additional Health Concerns Assessment Noted Time PHQ-9 Depression Total Score: 4 05/10/20 23 9:46 AM EST documented as of this encounter Care Teams Tree Worker Relationship Specialty Start Date End Date Zackery Hope MD [address] [place] [phone] PCP - General Family Medicine 07/05/18 documented as of this encounter
--- OUTSIDE RECORDS SUMMARY | 2025-06-06 13:33 | XMS_ITS | Encounter Summary ---
Author Organization [employer] [facility] Address [address] [place] [address] [place] [address] Care Team Providers Care Supervisor Electronics Assembly Name Role Phone NameZackery MD Primary Care Provider Reason for Visit * Reason Comments Med Refill Encounter Details Date Type Department Care Team ([facility] Contact Info) Description 09/21/2022 Refill [facility] [address] [place] [phone] Zackery Hope MD [address] [place] [phone] Chronic low back pain, unspecified back pain laterality, unspecified whether sciatica present Social History Tobacco Use Types Packs/Day Years Used Date Smoking Tobacco: Never Assessed PHQ-2 Answer Date Recorded Patient Health Questionnaire-2 Score 0 08/31/2022 Comments Unknown Sex and Gender Information Value Date Recorded Sex Assigned at Female 05/04/2022 10:32 AM EDT Legal Sex Female 10:32 AM EDT Gender Identity Female 05/04/2022 10:32 AM EDT Sexual Orientation Straight 05/04/2022 10 :32 AM EDT COVID-19 Exposure Response Date Recorded In the last 10 days, have yo u been in contact with someone who was confirmed or suspected to have Coronavirus/COVID-19? No / Unsure 08/31/2022 9:12 AM EST documented as of this encounter Plan of Treatment Upcoming Encounters Date Type Department Care Team ([facility] Contact Info) Description 08/01/2025 2:15 PM EST Office Visit [facility] [address] [place] [phone] [place] [address] 08/23/2025 9:00 AM EST Clinical Support [facility] [place] [address] Chasidy Leong RN documented as of this encounter Visit Diagnoses Diagnosis Chronic low back pain, unspecified back pain laterality, unspecified whether sciatica present documented in this encounter Additional Health Concerns Assessment Noted Time PHQ-9 Depression Total Score: 6 08/31/19 23 3:39 PM EST documented as of this encounter Care Teams Supervisor Electronics Assembly Relationship Specialty Start Date End Date Name, [place] [address] PCP - General Family Medicine 07/05/18 documented as of this encounter
--- OUTSIDE RECORDS SUMMARY | 2025-06-06 13:33 | XMS_ITS | Encounter Summary ---
Author Organization [employer] Address [address] [place] [address] 7 [place] [address] Care Team Providers Care Brazing Machine Operator Helper Name Role Phone Name, Zackery BROOKS Primary Care Provider [phone] Reason for Visit * Reason Onset Date Comments Med Refill Appointment 08/18/2023 [facility] Encounter Details Date Type Department Care Team ([facility] st Contact Info) Description 08/12/2023 Refill [facility] [address] [place] [address] Dallin Trevino FNP Depression with anxiety Social History Tobacco Use Types Packs/Day Years [...] encounter Miscellaneous Notes * Telephone Encounter - Lissette De La Vega MA - 08/18/2023 11:27 AM EST T/C placed to pt regarding to re-schedule her appt as tele-visit -. Pt agrees to schedule for 09/21/23. Pt is not active with any other psych prescriber. documented in this encounter Plan of Treatment Upcoming Encounters Date Type Department Care Team (Late st Contact Info) Description 08/01/2025 2:15 PM EST Office Visit [address] [address] Name, MD Zackery [address] [place] [address] 08/23/2025 9:00 AM EST Clinical Support [address] [address] Chasidy Leong, NIECY documented as of this encounter Visit Diagnoses Diagnosis Depression with anxiety Dysthymic disorder documented in this encounter Additional Health Concerns Assessment Noted Time PHQ-9 Depression Total Score: 4 05/10/20 23 9:46 AM EST documented as of this encounter Care Teams Brazing Machine Operator Helper Relationship Specialty Start Date End Date Name, MD Zackery [address] [place] [address] PCP - General Family Medicine 07/05/18 documented as of this encounter
--- OUTSIDE RECORDS SUMMARY | 2025-06-06 13:33 | XMS_ITS | Encounter Summary ---
Author Organization [employer] Address [address] [place] [address] 7 [place] [address] Care Team Providers Care Supervisor Water Treatment Plant Name Role Phone Name, Zackery BROOKS Primary Care Provider [phone] Reason for Visit * Reason Comments Med Refill Encounter Details Date Type Department Care Team ([facility] Contact Info) Description 05/31/2025 Refill [facility] [address] [place], [place] [phone] Name, MD Zackery [address] [place], [place] [phone] Depression with anxiety; Chronic low back pain, unspecified back pain [...] Answer Date Recorded Patient Health Questionnaire-9 Score 14 02/16/2025 Patient Health Questionnaire-9 Score 14 02/16/2025 Last PHQ-9: Questionnaire Data Not on file 0 02/16/2025 Housing Stability Answer Date Recorded What is your housing situation today? I am not s ure 02/16/[address] you li ve. Do you have problems with any of the following? I am not sure 02/16/2025 Food Insecurity Answer Date Recorded Within the past 12 months, y ou worried that your food would run out before you got money to buy more: Never True 02/16/2025 Within the past 12 months,th e food you bought just didn't last and you didn't have enough money to get more: Never True Transportation Answer Date Recorded In the past 12 months, has l ack of transportation kept you from medical appts, meetings, work or from getting things needed for daily living? No 02/16/2025 Utilities Answer Date Recorded In the past 12 months, has t he electric, gas, oil or water company threatened to shut off services in your home? No 02/16/2025 Depression Answer Date Recorded Patient Health Questionnaire-2 Score 4 02/16/2025 Internet Access Answer Date Recorded Internet Access Q1 Yes 02/16/2025 Internet Access Q2 Not on file 02/16/2025 Comments Unknown Sex and Gender Information Value [...] Description 08/01/2025 2:15 PM EST Office Visit [address] [address] Zackery Hope MD [address] [place] [address] 08/23/2025 9:00 AM EST Clinical Support [address] [address] Chasidy Leong, NIECY documented as of this encounter Visit Diagnoses Diagnosis Depression with anxiety Dysthymic disorder Chronic low back pain, unspecified back pain laterality, unspecified whether sciatica present documented in this encounter Additional Health Concerns Assessment Noted Time PHQ-9 Depression Total Score: 14 025 9:55 AM EDT documented as of this encounter Care Teams Supervisor Water Treatment Plant Relationship Specialty Start Date End Date Zackery Hope MD [address] [place] [address] PCP - General Family Medicine 07/05/18 documented as of this encounter
--- OUTSIDE RECORDS SUMMARY | 2025-06-06 13:33 | XMS_ITS | Clinical Summary ---
Author Organization [facility] [address] [place] [address] [place] [phone] Phone Care Team Providers Care Pediatric Occupational Therapist Name Role Phone Name, Zackery BROOKS Primary Care Provider [phone] Allergies No known active allergies Medications betamethasone, [...] likely GI in nature. No evidence of bottling equipment sales representative cause of her pain. Assessment & Plan (08/10/2024 9:13 AM EST): Will obtain pelvic US to evaluate ovaries again since this is ongoing, but I do not suspect Insurance Claims Representative etiology. I encouraged her to continue to follow with GI and discuss other methods to treat her constipation. Hypertension 11/02/2023 Chronic low back pain 07/03/2022 Depression with anxiety 06/30/2022 Heart murmur 07/14/2017 Overview (08/10/2024): Normal ECHO 2018 at [facility]: - The left ventricular systolic function is [...] Health Maintenance Due Date Last Done Comments Colorectal Cancer Screening: Colonoscopy 1976 Hepatitis B Vaccines (1 of 3 - 19+ 3-dose series) 12/26/1995 HIV Screening 06/13/2022 Hepatitis C Screening 06/13/2022 Social Influencers of Health Screening 06/13/2022 Depression Screening 07/05/2024 Hypertension/CHF/CAD Annual BMP Blood Test 08/10/2024 COVID-19 Vaccine (2024- season) 2025 05/02/2024, 09/18/2020 Influenza Vaccine (#1) 2025 05/02/2024 Cervical Cancer Screening: HPV 02/06/2026 02/06/2021 Breast Cancer Screening 04/27/2026 04/27/20, 04/27/2024, 12/26/2021, Additional history exists DTaP,Tdap,and Td Vaccines (3 - Td or Tdap) 07/14/2027 07/14/2017, 11/06/2015 Cholesterol Screening (Lipid Panel) 10/17/2028 10/18/2023 RSV Immunization Adult Patients (1 - 1-dose 75+ series) 12/26/2051 HIB Vaccines Aged Out No longer eligi [...] Recommendation: Routine annual screening mammography is recommended [facility] [address] [address] Procedure Note Zhane Rios MD - 05/06/2024 [...] Recommendation: Routine annual screening mammography is recommended [facility] [address] [place], [place] [phone] Kayleen Pino MD IMG XR PROCEDURES Final Res ult * Cervical Cancer Screening: HPV (02/06/2021) Cervical Cancer Screening: HPV negative, abstracted Historical Provider HEALTH MAINTENANCE Final Result from Last 3 Months or Most Recently Relevant to Health Maintenance Insurance MEDICAID - [place] Care Teams Pediatric Occupational Therapist Relationship Specialty Start Date End Date Name, MD Zackery [address] [place] [address] PCP - General Internal Medicine 02/06/21
--- OUTSIDE RECORDS SUMMARY | 2025-06-06 13:33 | XMS_ITS | Encounter Summary ---
Author Organization [employer] Address [address] [place] [address] 7 [place] [address] Care Team Providers Care Fax Machine Operator Name Role Phone Name, Zackery BROOKS Primary Care Provider [phone] Reason for Visit * Reason Onset Date Comments Results 02/11/2023 Encounter Details Date Type Department Care Team ([facility] Contact Info) Description 02/11/2023 Telephone [facility] [address] [place] [phone] Name, MD Zackeyr [address] [place] [address] Results Social History Tobacco Use Types Packs/Day Years Used Date Smoking Tobacco: Never Smokeless Tobacco: Never Alcohol Use Standard Drinks/Week Comments Never 0 (1 standard drink = 0.6 oz pur e alcohol) Depression Answer Date Recorded Patient Health Questionnaire-9 Score 4 02/15/2023 Depression Answer Date Recorded Patient Health Questionnaire-2 Score 0 02/15/2023 Comments Unknown Sex and Gender Information Value Date Recorded Sex Assigned at Female 05/04/2022 10:32 AM EDT Legal Sex Female 10:32 AM EDT Gender Identity Female 05/04/2022 10:32 AM EDT Sexual Orientation Straight 05/04/2022 10 :32 AM EDT documented as of this encounter Miscellaneous Notes * Telephone Encounter - Bertha Choe RN - 02/17/2023 10:27 AM EDT FYI T/C to pt. For below message, pt. Is taking vit. D supplement and also verbally agreed to come to lab for blodd drawn. I suspect the PTH is elevated because of low vit D, this is a common problem after bariatric surgery, please have her come to the lab to check vit D levels and ask her if she is using vit D supplements, I can send vit D supplement to her pharmacy if she agrees * Telephone Encounter - Bertha Choe RN - 02/15/2023 1:05 PM EDT Please review below message and advice. Pt.'s lab result ( PTH ) is abnormal. * Telephone Encounter - Elsa Licona - 02/11/2023 1:45 PM EDT Tc from pt requesting a call in regards to recent labs done. Please contact pt at [phone] (Armenian) documented in this encounter Plan of Treatment Upcoming Encounters Date Type Department Care Team (Late st Contact Info) Description 08/01/2025 2:15 PM EST Office Visit [address] [address] Name, MD Zackery [address] [place] [address] 08/23/2025 9:00 AM EST Clinical Support [address] [address] Chasidy Leong, RN documented as of this encounter Visit Diagnoses Not on filedocumented in this encounter Additional Health Concerns Assessment Noted Time PHQ-9 Depression Total Score: 3 12/15/19 23 2:09 PM EDT documented as of this encounter Care Teams Fax Machine Operator Relationship Specialty Start Date End Date Zackery Hope MD [address] [place] [phone] PCP - General Family Medicine 07/05/18 documented as of this encounter
--- OUTSIDE RECORDS SUMMARY | 2025-06-06 13:33 | XMS_ITS | Encounter Summary ---
Author Organization [employer] Address [address] [facility] 7 [place] [address] Care Team Providers Care Glost Kiln Operator Name Role Phone NameZackery MD Primary Care Provider [phone] Reason for Referral * Medications - Closed Specialty Diagnoses / Procedures Referred By Contac t Referred To Contact Diagnoses Overweight (BMI 25.0-29.9) Hypertension, unspecified type Rapid weight gain NameZackery MD [address] [place] [phone] Phone: tel: fax: Referral ID Status Reason Start Date Expiration Date Visits Re quested Visits Authorized [id number] Closed 1 1 Reason for Visit * Reason Onset Date Comments Med Refill 05/23/2025 Pt walked in req uesting zepbound her insurance requires approval from pcp, claims insurance reached out to her pcp and has no response. Encounter Details Date Type Department Care Team ([facility] st Contact Info) Description 05/23/2025 Telephone [facility] MEDICINE [address], [place] [phone] Zackery Pelayo MD [address], [place] [phone] Med Refill (Pt walked in requesting zepbound her insurance requires approval from pcp, claims insurance reached out to her pcp and has no response. ) Social History Tobacco Use Types Packs/Day Years [...] AM EDT documented as of this encounter Functional Status * Over the last 2 weeks, how often have you been bothered by any of the following problems? Question Answer Date of Assessment Author Feeling nervous, anxious, or on edge 3 05/05 9:26 AM Chasidy Alexander RN Not being able to stop or co ntrol worrying 3 05/23/2025 9:26 AM Chasidy Alexander RN Worrying too much about diff erent things 3 05/23/2025 9:26 AM Chasidy Alexander RN Trouble relaxing 2 05/23/2025 9:26 AM Chasidy WILKERSON ae, RN Being so restless that it is hard to sit still 3 05/23/2025 9:26 AM Chasidy Alexander RN Becoming easily annoyed or irritable 2 05/05 9:26 AM Chasidy Alexander RN Feeling afraid as if somethi ng awful might happen 2 05/23/2025 9:26 AM Chasidy Alexander RN JESUS-7 Total Score 18 05/23/2025 9:26 AM Chasidy Alexander RN documented as of this encounter Miscellaneous Notes * Addendum Note - Zackery Pelayo MD - 06/06/2025 12:50 PM ESTAddended by: ZACKERY PELAYO on: 06/06/2025 12:50 PM Modules accepted: Orders * Telephone Encounter - Zackery Pelayo MD - 06/06/2025 12:48 PM EST I will try to get the PA again form her insurance again Current BMI is 28 She has gained about 10 pounds since her last visit with me * Telephone Encounter - Daphne Flores RN - 06/06/2025 12:34 PM EST Pt presented to blue team computer help desk specialist with current weight regarding getting the Zepbound. Document scanned into chart under encounters. Message forwarded to PCP for review. * Telephone Encounter - Daphne Flores RN - 05/25/2025 10:10 AM EST Images from the original note were not included. TC placed to pt via [address] court interpreter (William ID#[id number]) per below PCP message. Pt reports they are notsure of their current weight. Pt reports they believe they have gained 20-25 pounds. Pt reports they are gaining weight rapidly. Advised pt message to be sent to PCP for review. Pt verbalized understanding and denies questions at this time. Zackery Pelayo MD EN 05/25/25 6:17 AM Note Can we find out what is her current weight? I will have to submit a PA again Her insurance did not approve the Zepbound prescription back in September * Telephone Encounter - Zackery Pelayo MD - 05/25/2025 6:17 AM EST Can we find out what is her current weight? I will have to submit a PA again Her insurance did not approve the Zepbound prescription back in September * Telephone Encounter - Daphne Flores RN - 05/24/2025 9:38 AM EST Per review of chart, when pt last seen by PCP on 02/16/25, PCP discontinued zepbound and started pt on phentermine. TC placed to pt via [employer] court interpreter (ID#[id number]) regarding zepbound. Pt reports they are awaiting PCP to complete paperwork sent over from pharmacy in order to get the Zepbound. Pt also r equesting PCP send Zepbound to pharmacy. Pt reports they have been taking the phentermine as prescribed, exercising, and eating healthy foods, but they are gaining weight. Advised pt appointment withprovider necessary for evaluation. Pt reports they would only like to see their PCP. Advised pt no upcoming PCP availability before next scheduled appointment on 08/01/24. Pt verbalized understanding.Pt requesting message to be sent for PCP to send Zepbound until they are seen for an appointment. Advised telegraphic typewriter repairer will send message to PCP, but advised pt they will need to see provider for evaluation. Pt verbalized understanding and denies questions at this time. * Telephone Encounter - Zoraida Mathew - 05/23/2025 9:42 AM EST Pt walked in requesting zepbound her insurance requires approval from pcp, claims insurance reachedout to her pcp and has no response. documented in this encounter Plan of Treatment Upcoming Encounters Date Type Department Care Team (Late st Contact Info) Description 08/01/2025 2:15 PM EST Office Visit [address] [address] Name, MD Zackery [address] [place] [phone] 08/23/2025 9:00 AM EST Clinical Support [address] [address] Chasidy Leong, NIECY documented as of this encounter Visit Diagnoses Diagnosis Overweight (BMI 25.0-29.9)- Primary Overweight Hypertension, unspecified type Rapid weight gain documented in this encounter Additional Health Concerns Assessment Noted Time PHQ-9 Depression Total Score: 14 025 9:55 AM EDT documented as of this encounter Care Teams Glost Kiln Operator Relationship Specialty Start Date End Date Name, MD Zackery [address] [place] [phone] PCP - General Family Medicine 07/05/18 documented as of this encounter
--- OUTSIDE RECORDS SUMMARY | 2025-06-06 13:33 | XMS_ITS | Encounter Summary ---
Author Organization [employer] Address [address] [place] [address] 7 [place] [address] Care Team Providers Care Dye Maker Name Role Phone Name, Zackery BROOKS Primary Care Provider [phone] Reason for Visit * Reason Onset Date Comments Med Refill 11/15/2024 Encounter Details Date Type Department Care Team ([facility] st Contact Info) Description 11/15/2024 Refill [facility] MEDICINE [address] [place], [place] [phone] Name, MD Zackery [address] [place] [address] Social History Tobacco Use Types Packs/Day Years [...] Description 08/01/2025 2:15 PM EST Office Visit [address] [address] NameZackery MD [address] [place] [phone] 08/23/2025 9:00 AM EST Clinical Support [address] [address] Chasidy Leong, NIECY documented as of this encounter Visit Diagnoses Not on filedocumented in this encounter Additional Health Concerns Assessment Noted Time PHQ-9 Depression Total Score: 8 11/22/19 24 10:00 AM EDT documented as of this encounter Care Teams Dye Maker Relationship Specialty Start Date End Date Zackery Hope MD [address] [place] [phone] PCP - General Family Medicine 07/05/18 documented as of this encounter
--- OUTSIDE RECORDS SUMMARY | 2025-06-06 13:33 | XMS_ITS | Clinical Summary ---
Author Organization [employer] Address [address] [place] [address] 7 [place] [address] Care Team Providers Care Sash Installer Name Role Phone Name, Zackery BROOKS Primary Care Provider [phone] Allergies No known active allergies Medications Blood Pressure Monitoring (Omron 3 Series BP Monitor) device USE TO CHECK BLOOD PRESSURE DAILY 09/09/19 22 Active pantoprazole (ProtoNix) 40 MG EC tablet Take 1 tablet by mouth 1 (one) time each day. 04/02/20 22 Active cholecalciferol (Vitamin D-3) 125 MCG (5000 UT) capsule Take 1 capsule by mouth 1 (one) time each day. 04/01/20 22 Active ondansetron (Zofran) 4 MG tabletIndicatio ns:Migraine without aura, not refractory TAKE 2 TABLETS BY MOUTH TWICE DAILY 30 tablet 10/29/19 23 Active simethicone (Mylicon) 80 MG chewable tablet 11/28/19 23 Active meclizine (Antivert) 25 MG tabletIndicatio ns:Vertigo TAKE 1 TABLET BY MOUTH THREE TIMES DAILY NEEDED 30 tablet 2 05/02/20 24 Active naloxone (Narcan) 4 mg/0.1 mL nasal sprayIndication s:Chronic low back pain, unspecified back pain laterality, unspecified whether sciatica present INSTILL 1 SPRAY INTO AFFECTED NOSTRILS NEEDED FOR OPIOID REVERSAL 2 each 1 09/29/19 25 Active Asmanex HFA 100 MCG/ACT aerosol INHALE 1 PUFF BY MOUTH TWICE DAILY. 39 g 1 10/07/19 25 Active Neomycin-Bacitr acin-Polymyxin (Triple Antibiotic) 3.5-400-5000 ointment Apply once a day to the affected skin 28 g 1 11/01/19 25 Active metoprolol tartrate (Lopressor) 25 MG tablet TAKE 1 TABLET(25 MG) BY MOUTH TWICE DAILY 180 tablet 3 11/18/19 25 Active topiramate (Topamax) 100 MG tablet Take 1 tablet (100 mg) by mouth 2 times daily. 60 tablet 11 11/18/19 25 026 Active butalbital-acet aminophen-caffe ine 50-325-40 MG tabletIndicatio ns:Migraine without aura, not refractory TAKE 1 TABLET BY MOUTH EVERY 6 TO 8 HOURS NEEDED FOR HEADACHE 9 tablet 11/25/19 25 Active riboflavin (Vitamin B-2) 400 MG tablet TAKE 1 TABLET BY MOUTH DAILY 90 tablet 11/25/19 25 Active traZODone (Desyrel) 50 MG tablet Take 1-2 tablets (50-100 mg) by mouth at bedtime. 120 tablet 01/05/20 25 Active phentermine 15 MG capsule TAKE 1 CAPSULE(15 MG) BY MOUTH BEFORE BREAKFAST 30 capsule 01/23/20 25 Active Multiple Vitamin (multivitamin) tablet Take 1 tablet by mouth Once per day. 90 tablet 3 02/17/20 25 Active citalopram (CeleXA) 10 MG tablet Take 1 tablet (10 mg) by mouth Once per day. 30 tablet 2 02/17/20 25 Active albuterol (Ventolin HFA) 108 (90 Base) MCG/ACT inhaler INHALE 2 PUFFS BY MOUTH EVERY 4 TO 6 HOURS NEEDED 18 g 1 04/30/20 25 Active clonazePAM (KlonoPIN) 0.5 MG tabletIndicatio ns:Depression with anxiety TAKE 1 TABLET (0.5 MG) BY MOUTH EVERY 12 (TWELVE) HOURS IF NEEDED FOR ANXIETY. 56 tablet 06/04/20 25 Active traMADol (Ultram) 50 MG tabletIndicatio ns:Chronic low back pain, unspecified back pain laterality, unspecified whether sciatica present TAKE 1 TABLET (50 MG) BY MOUTH EVERY 12 (TWELVE) HOURS IF NEEDED FOR SEVERE PAIN FOR UP TO 28 DAYS. 56 tablet 06/04/20 25 025 Active Tirzepatide-Cayden ght Management (Zepbound) 2.5 MG/0.5ML solution auto-injectorIn dications:Overw eight (BMI 25.0-29.9),Hype rtension, unspecified type,Rapid weight gain Inject 0.5 mL (2.5 mg) under the skin 1 (one) time per week. 2 mL 06/06/20 25 026 Active clonazePAM (KlonoPIN) 0.5 MG tabletIndicatio ns:Depression with anxiety Take 1 tablet (0.5 mg) by mouth every 12 (twelve) hours if needed for anxiety. 56 tablet 05/02/20 25 025 Discontinued traMADol (Ultram) 50 MG tabletIndicatio ns:Chronic low back pain, unspecified back pain laterality, unspecified whether sciatica present Take 1 tablet (50 mg) by mouth every 12 (twelve) hours if needed for severe pain for up to 28 days. 56 tablet 05/02/20 25 025 Discontinued Active Problems Problem Noted Date Diagnosed Date Long-term current use of opiate analgesic 2024 Long-term current use of benzodiazepine 12/12/19 25 Hematuria, gross 08/10/2024 Constipation 01/25/2024 Overview (01/28/2024): Last Assessment & Plan: I counseled her that her goal with constipation management should be for daily BM. I encouraged her to increase her fiber and water if able. She was also encouraged to use Colace BID and add magnesium oxide supplementation nightly. She agreed. If not improving, should see PCP for possible referral to GI. Encounter for screening mamm ogram for malignant neoplasm of breast 01/25/2024 Low libido 01/25/2024 Overview (01/28/2024): Last Assessment & Plan: Discussed that the [...] on these things. Pelvic cramping 01/25/2024 Overview (01/28/2024): Last Assessment & Plan: Based on history and exam, likely GI in nature. No evidence of appointment manager cause of her pain. Hypertension 11/02/2023 H/O total hysterectomy 12/16/2022 Overview (12/16/2022): Robotic assisted hysterectomy with salpingectomy 11/2022 History of bariatric surgery 09/28/2022 Chronic low back pain 07/03/2022 Depression with anxiety 06/30/2022 Assessment & Plan (11/22/2023 10:54 AM EDT): Presented with poor sleep, mild mood-congruent auditory hallucinations (door-knocking, name calling). Found Seroquel too sedating. Now doing well with Trazodone 50 mg 1-2 tabs at bedtime, Duloxetine 30 mg BID, and Clonazepam 0.5 mg BID (careful not to take Clonazepam with Tramadol). She also takes Tramadol, Topiramate 50 mg BID and Phentermine per PCP. Since this provider will be retiring, she is now referred back to PCP for further medication management . Continue with therapist and request referral to agency prescriber if possible. Any issues or concerns, contact [facility]. All her questions were answered. I have wished her well. She agrees with the plan. Assessment & Plan (09/21/2023 10:46 AM EDT): Presented with poor sleep, mild mood-congruent auditory hallucinations (door-knocking, name calling). Found Seroquel too sedating. Now doing well with Trazodone 50 mg 1-2 tabs at bedtime, Clonazepam 0.5 mg BID (careful not to take Clonazepam with Tramadol). Continue Duloxetine 30 mg BID. She also takes Tramadol, Topiramate 50 mg BID and Phentermine per PCP. Continue with therapist. On 05/10/2023 provider informed pt that I would be retiring. Recommend she discuss with her therapist the possiblity of referral to agency psychiatric prescriber. F/U with me in 2 months which will most likely be our final visit. She agrees with the plan. Assessment & Plan (05/10/2023 10:37 AM EST): Presented with poor sleep, mild mood-congruent auditory hallucinations (door-knocking, name calling). Found Seroquel too sedating. Now doing well with Trazodone 50 mg at bedtime, Clonazepam 0.5 mg BID (careful not to take Clonazepam with Tramadol). Continue Duloxetine 30 mg BID. She also takes Topiramate 50 mg BID and Phentermine per PCP. Continue with therapist. Today 05/10/2023 provider informed pt that I would be retiring within the next year or so, and suggest she discuss with her therapist the possiblity of referral to agency psychiatric prescriber. F/U with me in 2 months. She agrees with the plan. Assessment & Plan (02/15/2023 12:02 PM EDT): Presented with poor sleep, mild mood-congruent auditory hallucinations (door-knocking, name calling). Found Seroquel too sedating. Now doing well with Trazodone 50 mg at bedtime, Clonazepam 0.5 mg BID (but do not take Clonazepam with Tramado)l. Continue Duloxetine 30 mg BID. She also takes Topiramate 50 mg BID and Phentermine per PCP. Continue with therapist. F/U with me in 2 months. She agrees with the plan. Assessment & Plan (12/14/2022 2:44 PM EDT): Presented with poor sleep, mild mood-congruent auditory hallucinations (door-knocking, name calling). Found Seroquel too sedating, and has stopped that and gone back to Trazodone 50 mg 1-2 at bedtime. Also continue Clonazepam 0.5 mg BID, but do not take Clonazepam with Tramadol. Continue Duloxetine 30 mg BID. She also takes Topiramate 50 mg BID per PCP. Continue with therapist. F/U with me in 2 months. She agrees with the plan. Assessment & Plan (10/27/2022 4:18 PM EDT): Anxiety not adequately controlled. Poor sleep. Mild mood-congruent auditory hallucinations (door-knocking, name calling). Still doing well other than difficulty sleeping. She will stop the Trazodone 50 mg. She will start Seroquel 25 mg 1/2 to 1 tab at bedtime. Continue current medications. Do not take Clonazepam with Tramadol, she understands. Continue with therapist. F/U with me in 6 weeks. She agrees with the plan. Assessment & Plan (08/31/2022 4:29 PM EST): Still doing well other than difficulty sleeping. Reviewed that she can take Trazodone 50 mg 1 or 2 tablets at bedtime. Continue current medications. Do not take Clonazepam with Tramadol, she understands. Continue with therapist. F/U with me in 2 months. She agrees with the plan. Assessment & Plan (06/30/2022 11:18 AM EST): Doing well. Continue current medications. Continue with therapist. F/U with me in 2 months. She agrees with the plan. Abnormal uterine bleeding 06/15/2022 Overview (11/09/2022): Last Assessment & Plan: Pt was again counseled regarding options for treatment of her symptoms including oral hormonal therapy, levonorgestrel IUD, myomectomy and hysterectomy. I reviewed the risks, benefits, and rates of amenorrhea. She was most interested in definitive surgical management with hysterectomy. Will plan for robotic assisted total laparoscopic hysterectomy, bilateral salpingectomy and diagnostic cystoscopy. We reviewed the risks/benefits of leaving the ovaries in situ. We discussed the risk possibility of conversion to an open procedure if needed to complete the surgery safely. The expectations for recovery were reviewed. Patient in agreement to proceed and all questions answered. She will return for EMB and again for preoperative visit. Urinary incontinence 10/13/2017 Uterine fibroid 10/13/2017 Overview (07/03/2022): 12/2021- There is a fundal right lateral [...] or painful menses. See AUB plan above. Obesity (BMI 30-39.9) 07/14/2017 Assessment & Plan (11/20/2024 10:19 AM EDT): Pt has tolerated zepbound, no dm, no side effects pt would prefer to continue therapy as found it helpful, explained at this time pt may not be eligible as bmi is at 25. Will send rx and defer to pcp if not covered Migraine without aura, not refractory 07/14/2017 Heartburn 07/14/2017 Heart murmur 07/14/2017 Overview (11/09/2022): Normal ECHO 2018 at [facility] [place]: - The left ventricular systolic function is normal. The visually estimated ejection fraction is between 55-60%. - No obvious valvular pathology seen on this study. Carpal tunnel syndrome 07/14/2017 Encounters Date Type Department Care Team Description 05/31/2025 Refill [facility] [address] [place], [place] [id number] Zackery Hope MD Depression with anxiety; Chronic low back pain, unspecified back pain laterality, unspecified whether sciatica present 05/23/2025 9:00 AM EST Clinical Support [facility] [address] [place] [address] Chasidy Leong, NIECY Long-term current use of opiate analgesic (Primary Dx); Long-term current use of benzodiazepine 05/23/2025 Telephone [facility] [address] [place] [address] Zackery Hope MD Med Refill (Pt walked in requesting zepbound her insurance requires approval from pcp, claims insurance reached out to her pcp and has no response. ) 05/23/2025 Telephone [facility] [address] [place] [address] Chasidy Leong, RN MUTUEL CLERK Agreement signed today 05/23/2025 Travel 05/02/2025 Refill [facility] [address] [place] [address] Zackery Hope MD Depression with anxiety; Chronic low back pain, unspecified back pain laterality, unspecified whether sciatica present 04/30/2025 Refill [facility] [address] [place], [place] [id number] Zackery Hope MD Depression with anxiety 04/30/2025 Refill [facility] [address] [place] [address] Zackery Hope MD 03/28/2025 Refill [facility] [address] [place] [address] Zackery Hope MD Chronic low back pain, unspecified back pain laterality, unspecified whether sciatica present 03/08/2025 10:00 AM EDT Office Visit [facility] [address] [place] [address] Jillian Wiseman OD History of vertigo (Primary Dx); Hyperopia of left eye; Presbyopia 03/08/2025 Travel from Last 3 Months Immunizations Immunization Administration Dates Next Due Influenza, seasonal, injectable, preservative fr ee 05/02/2024 Ellyn SARS-CoV-2 Vaccination 09/18/2020 Pfizer Covid-19 Vaccine 12+ 05/02/2024 Tdap 07/14/2017,11/06/2015 Social History Tobacco Use Types Packs/Day Years Used Date Smoking Tobacco: Never Smokeless Tobacco: Never Tobacco Cessation:Counseling Given: Not Answered Alcohol Use Standard Drinks/Week Comments Never 0 [...] Orientation Straight 05/04/2022 10 :32 AM EDT Last Filed Vital Signs Vital Sign Reading Time Taken Comments Blood Pressure 120/78 02/16/2025 9:43 AM EDT Pulse 84 02/16/2025 9:43 AM EDT Temperature 35.4 C (95.8 F) 02/16/2025 9:43 AM EDT Respiratory Rate 18 02/16/2025 9:43 AM EDT Oxygen Saturation 99% 02/16/2025 9:43 AM EDT Inhaled Oxygen Concentration - - Weight 65.2 kg (143 lb 12.8 oz) 02/16/2025 9:43 AM EDT Height 160 cm (5' 3 ) 02/16/2025 9:43 AM EDT Body Mass Index 25.47 02/16/2025 9:43 AM EDT Plan of Treatment Upcoming Encounters Date Type Department Care Team (Late st Contact Info) Description 08/01/2025 2:15 PM EST Office Visit [address] [address] Name, MD Zackery [address] [place] [phone] 08/23/2025 9:00 AM EST Clinical Support [address] [address] Chasidy Leong, NIECY Health Maintenance Due Date Last Done Comments CT Colonography 1976 Colonoscopy 1976 Colorectal Cancer Screening 1976 FIT DNA/Cologuard 1976 FIT 1976 FOBT 1976 HIV Screening 1976 Sigmoidoscopy 1976 Family Planning (PISQ) 12/26/1991 Hepatitis C Screening 1994 Hepatitis B Vaccines (1 of 3 - 19+ 3-dose series) 12/26/1995 Pap Smear 1997 Cervical Cancer Screening 2006 HPV/Cotest 2006 COVID-19 Vaccine ( - 2024-2 6 season) 2025 05/02/2024, 09/18/2020 Influenza Vaccine (#1) 2025 05/02/2024 Mammogram 04/27/2025 04/27/2024, 12/26/2021 Depression Monitoring 08/19/2025 02/16/2025 , 02/16/2025 Alcohol/Substance Use Screening 02/16/2026 02/16/2025 Disability Screening 02/16/2026 02/16/2025 SDOH Screening 02/16/2026 02/16/2025 Tobacco Screening 03/08/2026 03/08/2025 Zoster Vaccines (1 of 2) 2026 DTaP/Tdap/Td Vaccines (3 - T d or Tdap) 07/14/2027 07/14/2017, 11/06/2015 Lipid Panel 01/15/2030 01/15/2025, 10/18/2023 RSV Patients and Patients Aged 60 years or older (1 - 1-dose 75+ series) 12/26/2051 HIB [...] patient's age to complete this topic Meningococcal Vaccine Aged Out No carol jered eligible based on patient's age to complete this topic Pneumococcal Vaccine: Pediatrics (0 to 5 Years) and At-Risk Patients (6 to 49) Years Aged Out No longer eligible b ased on patient's age to complete this topic RSV under 20 months Aged Out No longe r eligible based on patient's age to complete this topic Rotavirus Vaccines Aged Out No longer eligible based on patient's age to complete this topic Procedures Procedure Name Priority Date/Time Associated Diagnosis Comments POCT EUSEBIO-14 URINE DRUG SCREEN Routine 05/23/2025 9:09 AM EST Long-term current use of opiate analgesic Long-term current use of benzodiazepine LIPID PANEL, STANDARD Routine 01/15/2025 8:37 AM EDT HM MAMMOGRAPHY Routine 12/26/2021 from Last 3 Months or Most Recently Relevant to Health Maintenance Results * (ABNORMAL) POCT EUSEBIO-14 Urine Drug Screen (05/23/2025 9:09 AM EST) THC Negative Negative Cocaine Screen, Urine Negative Negative Opiate Screen, Urine Negative Negative Methamphetamine Screen Urine Negative Negative Amphetamine Screen, Urine Negative Negative Benzodiazepines Screen, Urine Positive(A) Negative Comment:MUTUEL CLERK pt on Clonazepam Barbiturate Screen, Urine Negative Negative Methadone Screen, Urine Negative Negative Buprenophine Screen, Urine Negative Negative TCA, Urine Negative Negative MDMA Urine Negative Negative ng/mL Oxycodone Screen, Urine Negative Negative Phencyclidine (PCP), Urine Negative Negative Propoxyphene, Urine Negative Negative Fentanyl, Urine Negative Negative Urine Urine specimen obtained by clean catch procedure / Unknown 05/23/2025 9:09 AM EST Chasidy Almanza RN - 05/23/2025 9:09 AM EST UTOX cup Lot#[id number] Exp. 06/04/26 Internal Pass Control us Zackery Hope MD POINT OF CARE TEST ENTER/EDIT OR DERABLES Final Result * (ABNORMAL) Lipid Panel, Standard (01/15/2025 8:37 AM EDT) Triglycerides 54 <150 mg/dL [facility] Comment:Desirable Triglyceri de: less than 150 mg/dLBorderline High Triglyceride 150-199 mg/dLHigh Triglyceride: 200-499 mg/dLVery High Triglyceride: greater than or equal to 5OO mg/dL Cholesterol 178 <200 mg/dL [facility] Comment:Desirable Cholestero l: less than 200 mg/dLBorderline High Cholesterol: 200-239 mg/dLHigh Cholesterol: greater than 239 mg/dL LDL Cholesterol Calculated 118(H) <100 mg/dL [facility] Comment:Desirable LDL: less than 100 mg/dLNear Optimal/Above Optimal LDL: 110- 129 mg/dLBorderline High LDL: 130-159 mg/dLHigh LDL: 160-189 mg/dLVery High LDL: greater than or equal to 190 mg/dL HDL Cholesterol 50 >40 mg/dL [facility] Comment:Desirable HDL: great er than 40 mg/dL Note: This HDL assay may give artificially low results in patients with liver disease. 01/15/2025 8:37 AM EDT 01/15/2025 8:37 AM EDT Generic External Data Provider LAB BLOOD ORDERAB LES Final Result [facility] [address] [place] [phone] * Mammography (12/26/2021) Mammogram BI-RADS 1 - negative Anatomical Region Laterality Modality Other Zackery Hope MD HEALTH MAINTENANCE Final Result from Last 3 Months or Most Recently Relevant to Health Maintenance [place] [address] [facility] [address] [place] [address] [place] [address] [place] [address] Care Teams Sash Installer Relationship Specialty Start Date End Date Name, MD Zackery [address] [place] [id number] PCP - General Family Medicine 07/05/18
== END 2025-06-06 12:20 | disposition home or self-care (01) ==
LOC: HO.HBS 11:16
PROVIDERS: PCP Internal Medicine Geriatric Medicine; Visit Provider Physician Assistant Surgical
DX: E66.3 Overweight (principal); Z68.28 Body mass index [BMI] 28.0-28.9, adult; Z90.3 Acquired absence of stomach [part of]; Z98.84 Bariatric surgery status
CPT/HCPCS: 99213

== ENCOUNTER → 2025-06-06 11:16 | Outpatient (BNVA) | payer MEDICAID, SELFPAY | PROVIDERS: PCP Internal Medicine Geriatric Medicine; Visit Provider Physician Assistant Surgical | DX: E66.3 Overweight (principal); Z68.28 Body mass index [BMI] 28.0-28.9, adult; Z98.84 Bariatric surgery status | CPT/HCPCS: 99212 ==